=== PATIENT | female | born 1985 | race Caucasian/White ===

== ENCOUNTER 2016-06-02 09:39 | Emergency (ER) | payer OTHER ==
[~2016-06-02] VITALS: Ht 162.6 cm; Wt 136.6 kg
[~2016-06-02 09:39] MED LIST: ACET-1256 PO; CYM/30 PO; DULO60CA44 PO; LEVO150T PO; OXYC-609 PO; PROM25TA16 PO; SENN-61 PO
[2016-06-02 09:41] VITALS: TEMP 37; Ht 162.6 cm; Wt 136.6 kg
[2016-06-02] MEDS ORDERED: ALPRAZOLAM 0.5 MG TAB PO STA (09:56)
[2016-06-02] MEDS ORDERED: FLUO40CA8 PO (10:41)
[2016-06-02] MEDS ORDERED: ONDA4TAB46 PO (10:41)
[2016-06-02] MEDS ORDERED: LEVO112T4 PO (10:41)
[2016-06-02] MEDS ORDERED: MoRPHine SULFATE 10 MG/ML CARP/VIAL IV STA (11:39)
[2016-06-02 12:07] LABS: BASO % 0.1 %; BASO ABS # 0.01 K/uL (0-0.2); COMPLETE YES; EOS % 0.2 %; HEMATOCRIT 38.2 % (37-47); IG% 0.1 %; LYMPH % 13.8 %; LYMPH ABS # 1.11 K/uL (1.2-3.4); MEAN CELL VOLUME 82.5 fL (80-100); MEAN CORPUSCULAR HEMOGLOBIN 28.1 pg (25-34); MEAN PLATELET VOLUME 10.5 fL (7.4-10.4); MONO % 5.5 %; NEUT % 80.3 %; PLATELET COUNT 286 K/uL (130-400); RED BLOOD COUNT 4.63 M/uL (4.2-5.4); WHITE BLOOD COUNT 8.05 K/uL (4.8-10.8)
[2016-06-02 12:31] LABS: BUN/CREATININE RATIO 9.5 (10-20); CALCIUM 9.5 mg/dl (8.5-10.1); CREATININE 0.83 mg/dl (0.60-1.20); POTASSIUM 3.7 mmol/L (3.5-5.1)
[2016-06-02 12:34] LABS: ALB/GLOB RATIO 0.9 (0.9-2)
[2016-06-02 13:10] VITALS: BP 133/98; PULSE 94; O2SAT 97
--- NOTE | 2016-06-02 13:17 | EMERGENCY ROOM VISIT NOTE ---
History First contact with patient: 09:49 Chief Complaint: ANXIETY Stated Complaint: TOOK WRONG MEDICATION, ANXIETY ATTACK History of Present Illness The patient is a 30 year old female who presents to the Emergency Room with complaints of an anxiety attack. The patient reports that she has chronic pancreatitis and takes oxycodone for this at home. She had taken one oxycodone as well as Zofran early this morning but still had pain. She states that she was trying to take her 's Tylenol, but accidentally took a tramadol. She states that she did research on the Internet and believes that Zofran and tramadol interacted. She reports that she is having an anxiety attack due to this. She has having palpitations and feels anxious. She does still have some chronic right upper quadrant abdominal pain. She states this is not out of the usual for her. She denies any chest pain, shortness of breath, headache, neck pain, vomiting, numbness or weakness. Review of Systems A complete 10-point Review of Systems was discussed with the patient, with pertinent positives and negatives listed in the History of Present Illness. All remaining Review of Systems questions can be considered negative unless otherwise specified. Past Medical/Surgical History Medical Problems: (1) Acute pancreatitis (2) Cholecystectomy (3) Chronic pancreatitis (4) Depressive disorder (5) Encounter for pancreatic duct stent exchange (6) Epigastric pain (7) Hx of pancreatitis (8) Intrauterine (9) Normal labor (10) Obesity, Nos (11) Pancreatic stent migration (12) Pancreatitis, chronic (13) Sterilization Surgical Problems: (1) H/O esophagogastroduodenoscopy (2) History of cholecystectomy (3) Tubal Ligation Status Family History Diabetes mellitus FH: [place] (myocardial infarction) FHx: cancer FHx: coronary artery disease FHx: gallbladder disease Hypertension Social History Smoking Status: Never Smoker Alcohol Use: none Drug Use: none Marital Status: Housing Status: lives with family Occupation Status: unemployed Current/Historical Medications Scheduled Fluoxetine (Prozac), 40 MG PO DAILY Levothyroxine Sodium (Levothyroxine Sodium), 1 TAB PO DAILY Scheduled PRN Acetaminophen (Tylenol), 1,500 MG PO UD PRN for Pain Ondansetron Hcl (Zofran), 4 MG PO for Nausea Oxycodone HCl (Oxycodone HCl), 5 MG PO Q4 PRN for Pain Promethazine HCl (Promethazine HCl), 1 TAB PO Q6 PRN for Nausea or Vomiting Senna (Senokot), 1 TAB PO DAILY PRN for Constipation Allergies Coded Allergies: Adhesives (Verified Allergy, Intermediate, REDDENED RASH, 06/02/16) Physical Exam Vital Signs Date Time Temp Pulse Resp B/P Pulse Ox O2 Delivery O2 Flow Rate FiO2 06/02/16 13:10 94 20 133/98 97 Room Air 06/02/16 11:58 110 16 154/91 98 Room Air 06/02/16 09:41 37.0 79 16 100 Room Air Physical Exam VITALS: Vitals are noted on the nurse's note and reviewed by myself. Vital signs stable. GENERAL: This is a 30-year-old female, anxious appearing, nondiaphoretic, well- developed well-nourished. SKIN: Capillary reflex less than 2 seconds. HEENT: Normocephalic. PERRLA. EOMI. Nares patent. Mucous membranes moist. Neck is supple without nuchal rigidity. HEART: Regular rate and rhythm without murmurs gallops or rubs. LUNGS: Clear to auscultation bilaterally without wheezes, rales or rhonchi. No retractions or accessory muscle use. ABDOMEN: Positive bowel sounds x 4. Mild right upper quadrant tenderness. No guarding or rebound tenderness. NEURO: Patient was alert and oriented to person place and time. Medical Decision & Procedures Laboratory Results 06/02/16 11:55 Red Blood Count 4.63, Mean Corpuscular Volume 82.5, Mean Corpuscular Hemoglobin 28.1, Mean Corpuscular Hemoglobin Concent 34.0, Mean Platelet Volume 10.5, Neutrophils (%) (Auto) 80.3, Lymphocytes (%) (Auto) 13.8, Monocytes (%) (Auto) 5.5, Eosinophils (%) (Auto) 0.2, Basophils (%) (Auto) 0.1, Neutrophils # (Auto) 6.46, Lymphocytes # (Auto) 1.11, Monocytes # (Auto) 0.44, Eosinophils # (Auto) 0.02, Basophils # (Auto) 0.01 06/02/16 11:55 Test 06/02/16 11:55 White Blood Count 8.05 K/uL (4.8-10.8) Red Blood Count 4.63 M/uL (4.2-5.4) Hemoglobin 13.0 g/dL (12.0-16.0) Hematocrit 38.2 % (37-47) Mean Corpuscular Volume 82.5 fL (80-100) Mean Corpuscular Hemoglobin 28.1 pg (25-34) Mean Corpuscular Hemoglobin Concent 34.0 g/dl (32-36) Platelet Count 286 K/uL (130-400) Mean Platelet Volume 10.5 fL (7.4-10.4) Neutrophils (%) (Auto) 80.3 % Lymphocytes (%) (Auto) 13.8 % Monocytes (%) (Auto) 5.5 % Eosinophils (%) (Auto) 0.2 % Basophils (%) (Auto) 0.1 % Neutrophils # (Auto) 6.46 K/uL (1.4-6.5) Lymphocytes # (Auto) 1.11 K/uL (1.2-3.4) Monocytes # (Auto) 0.44 K/uL (0.11-0.59) Eosinophils # (Auto) 0.02 K/uL (0-0.5) Basophils # (Auto) 0.01 K/uL (0-0.2) RDW Standard Deviation 41.3 fL (36.4-46.3) RDW Coefficient of Variation 13.6 % (11.5-14.5) Immature Granulocyte % (Auto) 0.1 % Immature Granulocyte # (Auto) 0.01 K/uL (0.00-0.02) Anion Gap 9.0 mmol/L (3-11) Est Creatinine Clear Calc Drug Dose 138.1 ml/min Estimated GFR () 110.4 Estimated GFR (Non- 95.3 BUN/Creatinine Ratio 9.5 (10-20) Calcium Level 9.5 mg/dl (8.5-10.1) Total Bilirubin 0.4 mg/dl (0.2-1) Aspartate Amino Transf (AST/SGOT) 18 U/L (15-37) Alanine Aminotransferase (ALT/SGPT) 28 U/L (12-78) Alkaline Phosphatase 60 U/L (45-117) Total Protein 8.0 gm/dl (6.4-8.2) Albumin 3.8 gm/dl (3.4-5.0) Globulin 4.2 gm/dl (2.5-4.0) Albumin/Globulin Ratio 0.9 (0.9-2) Lipase 213 U/L (73-393) Medications Administered Medications (Trade) Dose Ordered Sig/René Route Start Time Stop Time Status Last Admin Dose Admin Alprazolam (Xanax Tab) 0.5 mg NOW STAT PO 06/02/16 09:56 06/02/16 10:00 DC 06/02/16 10:05 0.5 MG Morphine Sulfate (MoRPHine SULFATE INJ) 6 mg NOW STAT IV 06/02/16 11:39 06/02/16 11:42 DC 06/02/16 11:57 6 MG Medical Decision Differential diagnosis includes anxiety attack, medication reaction, acute pancreatitis, infection, among others. The patient was evaluated as above. EKG was performed and was unremarkable except for artifact. The patient was given 0.5 mg Xanax. However, on reassessment the patient was then complaining of significant right upper quadrant pain which she states is consistent with her pancreatitis. She states that at times, when she becomes stressed her pancreatitis flares up. She states that she believes this is what is happening now. She did have moderate tenderness on palpation of the right upper quadrant. She was then given 6 mg morphine. Labs were drawn and revealed no leukocytosis, anemia or concerning electrolyte abnormalities. LFTs were normal. Lipase was not elevated. The patient was reassessed and felt much better. She will be discharged home to follow-up with her primary care provider. Impression Primary Impression: Anxiety Additional Impression: Right upper quadrant abdominal pain Departure Information Dispostion Home / Self-Care Condition GOOD Referrals Xander Wyatt M.D. (PCP) Patient Instructions My [facility] Additional Instructions You have been treated in the Emergency Department for your Abdominal Pain. Laboratory results and imaging studies have ruled out any emergent causes for your abdominal pain which would warrant admission or surgery. Continue pain medication at home as prescribed. Follow-up with your primary care provider in any specialists as needed. Return to the emergency department if your symptoms persist despite treatment plan outlined above or if the following symptoms occur: increased fevers, chills , worsening nausea/vomiting, blood in your stool or urine. Problem Qualifiers
== END 2016-06-02 13:40 | disposition home or self-care (01) ==
LOC: C.EDB 09:42 → C.EDA 13:40
DX: F41.9 Anxiety disorder, unspecified (principal); R10.11 Right upper quadrant pain; F32.9 Major depressive disorder, single episode, unspecified; K86.1 Other chronic pancreatitis; Z98.51 Tubal ligation status; Z90.49 Acquired absence of other specified parts of digestive tract; Z79.899 Other long term (current) drug therapy; Z91.09 Other allergy status, other than to drugs and biological substances; Z83.3 Family history of diabetes mellitus; Z80.9 Family history of malignant neoplasm, unspecified; Z82.49 Family history of ischemic heart disease and other diseases of the circulatory system; Z83.79 Family history of other diseases of the digestive system

== ENCOUNTER 2016-08-31 09:32 | Emergency (ER) | payer OTHER ==
[~2016-08-31] VITALS: Ht 162.6 cm; Wt 137.0 kg
[~2016-08-31 09:32] MED LIST changes: -ACET-1256 PO; -CYM/30 PO; -DULO60CA44 PO; +FLUO40CA8 PO; +LEVO112T4 PO; -LEVO150T PO; +ONDA4TAB46 PO; -OXYC-609 PO; -PROM25TA16 PO
[2016-08-31 09:35] VITALS: TEMP 36.9; Ht 162.6 cm; Wt 137.0 kg
[2016-08-31] MEDS ORDERED: HYDROmorphone INJ 1 MG/ML SYR IV STA (10:05)
[2016-08-31] MEDS ORDERED: SODIUM CHLORIDE 0.9% 1000ML 1,000 ML IV STA (10:05)
[2016-08-31] MEDS ORDERED: ONDANSETRON INJ 2 MG/ML 2 ML VIAL IV STA (10:05)
--- NOTE | 2016-08-31 10:22 | DIAGNOSTIC IMAGING REPORT ---
CHEST ONE VIEW PORTABLE CLINICAL HISTORY: Abdominal pain. COMPARISON STUDY: Chest radiograph March 07, 2016. FINDINGS: There is no lucency under the hemidiaphragms to indicate pneumoperitoneum on this exam. Lung volumes are normal. Lungs are clear. There is no evidence of pulmonary edema. Cardiomediastinal silhouette is normal. IMPRESSION: No acute cardiopulmonary findings. Electronically signed by: Francis Aguirre M.D. 08/31/2016 10:21 AM Dictated Date/Time: 08/31/2016 10:20 AM
[2016-08-31 10:24] LABS: BASO % 0.2 %; BASO ABS # 0.01 K/uL (0-0.2); COMPLETE YES; EOS % 1.2 %; HEMATOCRIT 40.4 % (37-47); LYMPH % 20.9 %; LYMPH ABS # 1.37 K/uL (1.2-3.4); MEAN CELL VOLUME 84.5 fL (80-100); MEAN CORPUSCULAR HEMOGLOBIN 27.8 pg (25-34); MEAN CORPUSCULAR HGB CONC 32.9 g/dl (32-36); MEAN PLATELET VOLUME 10.2 fL (7.4-10.4); MONO % 6.3 %; NEUT % 71.4 %; PLATELET COUNT 315 K/uL (130-400); RED BLOOD COUNT 4.78 M/uL (4.2-5.4); WHITE BLOOD COUNT 6.56 K/uL (4.8-10.8)
[2016-08-31 10:44] LABS: ALT/SGPT 31 U/L (12-78); AST/SGOT 9 U/L (15-37); BLOOD UREA NITROGEN 10 mg/dl (7-18); BUN/CREATININE RATIO 11.9 (10-20); CALCIUM 8.7 mg/dl (8.5-10.1); CARBON DIOXIDE 23 mmol/L (21-32); CHLORIDE 109 mmol/L (98-107); CREATININE 0.81 mg/dl (0.60-1.20); GLUCOSE 104 mg/dl (70-99); POTASSIUM 3.9 mmol/L (3.5-5.1); SODIUM 141 mmol/L (136-145)
[2016-08-31 10:46] LABS: ALKALINE PHOSPHATASE 61 U/L (45-117); AMYLASE 61 U/L (25-115)
[2016-08-31] MEDS ORDERED: ALUMINUM/MAGNESIUM SUSP 30 ML UDC PO STA (11:18)
[2016-08-31] MEDS ORDERED: LIDOCAINE HCL 2% VISC SOLN 20 ML UDC PO STA (11:18)
[2016-08-31] MEDS ORDERED: PANTOprazole INJ 80 MG in DEXTROSE 5% 100ML 100 ML IV SCH (11:30)
[2016-08-31 11:52] LABS: URINE APPEARANCE TURBID (CLEAR); URINE BILIRUBIN NEG (NEG); URINE COLOR DK YELLOW; URINE EPITHELIAL CELL AUTO >30 /lpf (0-5); URINE NITRITE NEG (NEG); URINE SPECIFIC GRAVITY 1.026 (1.000-1.030); UROBILINOGEN NEG (NEG)
[2016-08-31 11:56] LABS: MANUAL MICROSCOPIC REQUIRED? NO; REVIEW REQ? NO
[2016-08-31 12:27] VITALS: BP 119/71; PULSE 93; O2SAT 98
--- NOTE | 2016-09-01 06:07 | EMERGENCY ROOM VISIT NOTE ---
ED Visit Note First contact with patient: 09:40 Chief Complaint: Abdominal pain History of Present Illness: Ms. Ba is a 30 year-old white female who ambulates into the ED complaining of epigastric abdominal pain. Historically patient reports chronic pancreatitis of unknown etiology, GERD, hiatal hernia and is status post cholecystectomy and tubal ligation. Patient reports a acute onset of epigastric abdominal pain that started approximately 2 days ago. Since that time the pain has been intermittent and comes in waves. She describes her discomfort as a burning sensation. The pain is radiating into the midsternal area. The pain worsens with eating, lying down. She has not identified any alleviating factors related to her discomfort. She has tried her prescribed oxycodone without relief of her discomfort. Associated with her pain she reports she's been having chills but no ayush fever, nauseated but has not vomited and this morning she had 4 episodes of light brown watery stools. And is improved by . has been taken for pain and relief has been achieved. Patient denies sweats, skin eruptions, skin color changes, upper respiratory tract symptoms, shortness of breath, constipation, rectal bleeding, black/tarry stools, urinary symptoms, hematuria, vaginal bleeding, vaginal discharge, back/ flank pain. Review of Systems: As noted above in history of present illness. All body systems were reviewed and found to be negative as noted above. Past Medical History: As noted above. Current Medications: Tylenol, oxycodone, promethazine, Senokot, levothyroxine, Zofran, Prozac Allergies to Medications: Patient denies. Social History: Patient is not currently employed; she feels safe in her home environment; she denies tobacco and alcohol use. Physical Examination: Vital Signs: Date Time Temp Pulse Resp B/P Pulse Ox O2 Delivery O2 Flow Rate FiO2 08/31/16 12:27 93 16 119/71 98 08/31/16 11:07 97 16 123/68 98 Room Air 08/31/16 09:35 36.9 117 22 139/81 99 GENERAL: 30-year-old female in moderate distress due to pain, nontoxic-appearing , afebrile and hemodynamically stable. NEUROLOGICAL: Awake, alert and oriented to person, place and time. Answering questions appropriately and following commands. Normal gait. Good hand eye coordination. SKIN: Warm, dry and pink. No soft tissue eruptions or trauma noted. HEENT: Atraumatic and normocephalic. PERRLA. Sclera white and conjunctiva pink. Oral cavity moist and pink. Pharynx is nonerythematous or edematous. Speech normal. No lymphadenopathy. Trachea midline. No jugular venous distention. BACK: No tenderness over the bony spine. No CVA tenderness. THORAX: Lungs sounds are clear to auscultation and equal bilaterally with symmetrical chest wall. No wheezing, rales or rhonchi. No crepitus, tenderness , subcutaneous air or deformities noted. HEART: Regular rate and rhythm. No gallops, rubs or murmurs are appreciated. ABDOMEN: Obese and soft with moderate epigastric tenderness. Decreased bowel sounds in all quadrants. No guarding, rigidity or organomegaly. EXTREMITIES: Moves all extremities well on command and with purpose. All distal neurovascular statuses are intact and equal bilaterally. ED Course: Patient is assessed as noted above. Laboratory Testing: Test 08/31/16 09:55 08/31/16 10:21 08/31/16 11:11 Range/Units White Blood Count 6.56 4.8-10.8 K/uL Red Blood Count 4.78 4.2-5.4 M/uL Hemoglobin 13.3 12.0-16.0 g/dL Hematocrit 40.4 37-47 % Mean Corpuscular Volume 84.5 80-100 fL Mean Corpuscular Hemoglobin 27.8 25-34 pg Mean Corpuscular Hemoglobin Concent 32.9 32-36 g/dl Platelet Count 315 130-400 K/uL Mean Platelet Volume 10.2 7.4-10.4 fL Neutrophils (%) (Auto) 71.4 % Lymphocytes (%) (Auto) 20.9 % Monocytes (%) (Auto) 6.3 % Eosinophils (%) (Auto) 1.2 % Basophils (%) (Auto) 0.2 % Neutrophils # (Auto) 4.69 1.4-6.5 K/uL Lymphocytes # (Auto) 1.37 1.2-3.4 K/uL Monocytes # (Auto) 0.41 0.11-0.59 K/uL Eosinophils # (Auto) 0.08 0-0.5 K/uL Basophils # (Auto) 0.01 0-0.2 K/uL RDW Standard Deviation 44.1 36.4-46.3 fL RDW Coefficient of Variation 14.2 11.5-14.5 % Immature Granulocyte % (Auto) 0.0 % Immature Granulocyte # (Auto) 0.00 0.00-0.02 K/uL Sodium Level 141 136-145 mmol/L Potassium Level 3.9 3.5-5.1 mmol/L Chloride Level 109 98-107 mmol/L Carbon Dioxide Level 23 21-32 mmol/L Anion Gap 9.0 3-11 mmol/L Blood Urea Nitrogen 10 7-18 mg/dl Creatinine 0.81 0.60-1.20 mg/dl Est Creatinine Clear Calc Drug Dose 141.8 ml/min Estimated GFR () 113.8 Estimated GFR (Non- 98.1 BUN/Creatinine Ratio 11.9 10-20 Random Glucose 104 70-99 mg/dl Calcium Level 8.7 8.5-10.1 mg/dl Total Bilirubin 0.4 0.2-1 mg/dl Direct Bilirubin < 0.1 0-0.2 mg/dl Aspartate Amino Transf (AST/SGOT) 9 15-37 U/L Alanine Aminotransferase (ALT/SGPT) 31 12-78 U/L Alkaline Phosphatase 61 45-117 U/L Total Protein 7.8 6.4-8.2 gm/dl Albumin 3.5 3.4-5.0 gm/dl Amylase Level 61 25-115 U/L Lipase 190 73-393 U/L Bedside Troponin I 0.000 0-0.045 ng/ml Urine Color DK YELLOW Urine Appearance TURBID CLEAR Urine pH 5.0 4.5-7.5 Urine Specific Bradley 1.026 1.000-1.030 Urine Protein NEG NEG Urine Glucose (UA) NEG NEG Urine Ketones TRACE NEG Urine Occult Blood NEG NEG Urine Nitrite NEG NEG Urine Bilirubin NEG NEG Urine Urobilinogen NEG NEG Urine Leukocyte Esterase TRACE NEG Urine WBC (Auto) 1-5 0-5 /hpf Urine RBC (Auto) 0-4 0-4 /hpf Urine Hyaline Casts (Auto) 1-5 0-5 /lpf Urine Epithelial Cells (Auto) >30 0-5 /lpf Urine Bacteria (Auto) NEG NEG Chest X-Rays: Were read by myself and the radiologist showing no acute infiltrates, effusions or pneumothorax. Normal heart silhouette and bony anatomy. No free air under the diaphragm. EKG: Was read by myself and reviewed with Dr. Alonso and shows normal sinus rhythm with sinus arrhythmia. Ventricular rate 99 bpm. Normal axis, intervals and complexes. No acute ST changes indicating ischemia, injury or infarction. This was compared to a previous from May 2016 and no acute changes were noted. Patient was hydrated with normal saline and she initially received 1 mg of the Dilaudid IV and 4 mg of Zofran IV for her symptoms. Patient was reassessed multiple times during her stay in the emergency department. She did review that her pain was getting much better but continued to have waves of burning discomfort. She was given a GI cocktail and 80 mg of Protonix IV push. Patient's case was reviewed with Dr. Alonso we agreed on diagnostic approach , treatment, disposition and plan. Patient was educated about tonight's findings and instructed on her treatment plan; she verbalizes understanding and agreement with this plan. Clinical Impression: Epigastric abdominal pain. Probable GERD exacerbation. Decision-Making: Initially my differential diagnosis I considered pancreatitis, hepatitis, esophagitis, GERD, acute coronary syndrome, gastritis and other causes. Disposition: Patient discharged home in stable condition; prior to departure he was reassessed and subjectively reported she was feeling better and rated her discomfort 6/10. Plan: Patient was encouraged to use [id number] Zantac 2 times a day. Patient was encouraged to bland diet for the next 48 hours and then avoid stomach irritants. Patient was encouraged to follow-up with her hospital nurse for recheck and possible EGD. Patient was encouraged return ED for worsening/uncontrolled pain, uncontrolled nausea with vomiting, bloody vomitus, bloody stools, fevers or any new/ concerning symptoms.
== END 2016-08-31 12:27 | disposition home or self-care (01) ==
LOC: C.EDB 09:34 → C.EDA 12:27
DX: R10.13 Epigastric pain (principal); K21.9 Gastro-esophageal reflux disease without esophagitis; E66.9 Obesity, unspecified; Z79.899 Other long term (current) drug therapy; Z87.19 Personal history of other diseases of the digestive system

== ENCOUNTER 2017-03-19 18:16 | Inpatient (IN) | payer OTHER ==
[~2017-03-19] VITALS: Ht 162.6 cm; Wt 132.8 kg
[2017-03-19] MEDS ORDERED: OXYC-609 PO (18:17)
[2017-03-19] MEDS ORDERED: PROM25TA16 PO (18:17)
[2017-03-19] MEDS ORDERED: ONDANSETRON INJ 2 MG/ML 2 ML VIAL IV STA (18:35)
[2017-03-19] MEDS ORDERED: MoRPHine SULFATE 10 MG/ML CARP/VIAL IV STA (18:35)
[2017-03-19] MEDS ORDERED: SODIUM CHLORIDE 0.9% 1000ML 1,000 ML IV STA (18:51)
[2017-03-19 19:00] LABS: URINE APPEARANCE CLEAR (CLEAR); URINE BILIRUBIN NEG (NEG); URINE COLOR YELLOW; URINE EPITHELIAL CELL AUTO >30 /lpf (0-5); URINE NITRITE NEG (NEG); URINE PH 5.5 (4.5-7.5); URINE SPECIFIC GRAVITY 1.019 (1.000-1.030); UROBILINOGEN NEG (NEG); ZZUR CULT IF INDIC CLEAN CATCH NO
[2017-03-19 19:02] LABS: MANUAL MICROSCOPIC REQUIRED? NO; REVIEW REQ? NO
[2017-03-19 19:06] LABS: BASO % 0.2 %; BASO ABS # 0.02 K/uL (0-0.2); COMPLETE YES; EOS % 0.3 %; IG% 0.2 %; LYMPH % 18.2 %; LYMPH ABS # 1.82 K/uL (1.2-3.4); MEAN CELL VOLUME 83.3 fL (80-100); MEAN CORPUSCULAR HEMOGLOBIN 28.1 pg (25-34); MEAN CORPUSCULAR HGB CONC 33.8 g/dl (32-36); MEAN PLATELET VOLUME 10.5 fL (7.4-10.4); MONO % 5.6 %; NEUT % 75.5 %; PLATELET COUNT 376 K/uL (130-400); WHITE BLOOD COUNT 10.01 K/uL (4.8-10.8)
[2017-03-19 19:25] LABS: ALT/SGPT 22 U/L (12-78); BLOOD UREA NITROGEN 11 mg/dl (7-18); BUN/CREATININE RATIO 12.7 (10-20); CALCIUM 9.5 mg/dl (8.5-10.1); CARBON DIOXIDE 22 mmol/L (21-32); CHLORIDE 107 mmol/L (98-107); CREATININE 0.86 mg/dl (0.60-1.20); GLUCOSE 99 mg/dl (70-99); POTASSIUM 4.2 mmol/L (3.5-5.1); SODIUM 141 mmol/L (136-145)
[2017-03-19 19:28] LABS: ALKALINE PHOSPHATASE 65 U/L (45-117); AST/SGOT 13 U/L (15-37)
--- NOTE | 2017-03-19 19:35 | DIAGNOSTIC IMAGING REPORT ---
(PANCREAS) ABDOMEN LTD HISTORY: 31 years-old Female abd pain epigastric acute epigastric abdominal pain COMPARISON: CT 08/14/2015 TECHNIQUE: Multiple real-time sonographic images of the abdominal right upper quadrant were obtained assessing grayscale appearance and color flow FINDINGS: Pancreas is predominantly obscured by bowel gas with imaged pancreatic head and neck appearing unremarkable. Mild pancreatic ductal dilation is again seen, 6 mm which is a stable finding. No obstructing stone or lesion identified. There is increased echogenicity of the hepatic parenchyma suggesting fatty infiltration. No intrahepatic biliary ductal dilation or focal mass identified. Mild dilation of the common bile duct, 0.8 cm also appears unchanged. Prior cholecystectomy. Imaged right kidney is unremarkable without hydronephrosis. IMPRESSION: 1. Prior cholecystectomy. Mild dilation of the common bile duct is likely secondary to postcholecystectomy state. 2. Unchanged mild pancreatic ductal dilation of unknown etiology without obstructing stone or lesion identified. 3. Probable fatty infiltration of the liver. The above report was generated using voice recognition software. It may contain grammatical, syntax or spelling errors. Electronically signed by: Yanick Brock M.D. 03/19/2017 7:34 PM Dictated Date/Time: 03/19/2017 7:30 PM
[2017-03-19] MEDS ORDERED: LEVO150T9 PO (20:04)
[2017-03-19] MEDS ORDERED: ONDA4TAB10 SL (20:04)
[2017-03-19] MEDS ORDERED: HYDR200T5 PO (20:04)
[2017-03-19] MEDS ORDERED: ACET-1256 PO (20:53)
[2017-03-19] MEDS ORDERED: ONDANSETRON INJ 2 MG/ML 2 ML VIAL IV PRN (21:00)
--- NOTE | 2017-03-19 21:23 | History and Physical ---
History & Physical Date & Time of Service: Mar 19, 2017 at 20:59 Chief Complaint: Abd Pain,Nausea Primary Care Physician: Xander Wyatt M.D. History of Present Illness Source: patient, clinic records, hospital records 31 year old female with PMH of obesity, chronic pancreatitis, diaphragmatic hernia, hypothyroidism, cholecystectomy, recently dx with undifferentiated connective tissue disease presents to the Emergency Room with complaints of constant abdominal pain. Pt said that she has been having abdominal pain located in the epigastric area that began on Sunday. Describes pain as sharp, grade 10/10, radiating to the LUQ and goes to her back. Pt said that she has been taking her oxycodone with no relief. She said that today she develops multiples episodes vomiting and watery diarrhea. She said that her symptoms are similar to her previous episodes of pancreatitis. She said that she has not been having any pancreatitis in the past year. She said that she recalled that she ate a sandwich on Sunday before starting to have the pain. She said that she felt warm on Sunday and took a Tylenol. Denies any recent abx used, traveling or sick contact. Denies any chest pain, palpitation, dizziness, SOB, dysuria and no alcohol intake. Past Medical/Surgical History Medical Problems: (1) Acute pancreatitis Status: Chronic (2) Cholecystectomy Status: Resolved (3) Chronic pancreatitis Status: Chronic (4) Depressive disorder Status: Chronic (5) Encounter for pancreatic duct stent exchange Status: Resolved (6) Epigastric pain Status: Chronic (7) Hx of pancreatitis Status: Chronic (8) Intrauterine Status: Resolved (9) Normal labor Status: Resolved (10) Pancreatic stent migration Status: Resolved (11) Pancreatitis, chronic Status: Chronic Surgical Problems: (1) H/O esophagogastroduodenoscopy Status: Resolved (2) History of cholecystectomy Status: Resolved (3) Tubal Ligation Status Status: Resolved Family History Diabetes mellitus FH: [facility] (myocardial infarction) FHx: cancer FHx: coronary artery disease FHx: gallbladder disease Hypertension Social History Smoking Status: Never Smoker Drug Use: none Marital Status: Housing status: lives with family Occupational Status: unemployed Immunizations History of Influenza Vaccine: Yes Influenza Vaccine Date: Mar 12, 2013 History of Tetanus Vaccine?: utd Tetanus Immunization Date: September 16, 2012 History of Pneumococcal: Unknown History of Hepatitis B Vaccine: Unknown Allergies Coded Allergies: Adhesives (Verified Allergy, Intermediate, REDDENED RASH, 08/31/16) Home Medications Scheduled Hydroxychloroquine Sulfate (Plaquenil), 200 MG PO DAILY Levothyroxine Sodium (Levothyroxine Sodium), 150 MCG PO QAM Scheduled PRN Ondasetron Odt (Zofran Odt), 4 MG SL Q4H PRN for Nausea Oxycodone HCl (Oxycodone HCl), 5 MG PO Q8 PRN for Pain Promethazine HCl (Promethazine HCl), 25 MG PO Q6H PRN for Nausea or Vomiting Review of Systems Constitutional: No chills, No sweats, No weight loss Eyes: No worsening of vision, No discharge ENT: No nasal symptoms, No sore throat Respiratory: No cough, No sputum, No wheezing, No shortness of breath Cardiovascular: No chest pain, No claudication, No palpitations Abdomen: + pain, + nausea, + vomiting, + diarrhea Musculoskeletal: No calf pain Genitourinary - Female: No dysuria, No urinary frequency Neurologic: No memory loss, No weakness Psychiatric: No substance abuse Endocrine: No fatigue, No excessive thirst Hematologic / Lymphatic: No abnormal bleeding/bruising Integumentary: No itch Physical Exam Vital Signs Date Time Temp Pulse Resp B/P (MAP) Pulse Ox O2 Delivery O2 Flow Rate FiO2 03/19/17 20:35 110/75 03/19/17 19:34 84 16 137/77 96 Room Air 03/19/17 18:26 37.0 109 18 138/92 96 Room Air General Appearance: WD/WN, + mild distress Head: normocephalic, atraumatic Eyes: PERRL, EOMI ENT: hearing grossly normal Neck: no JVD, trachea midline Respiratory/Chest: normal breath sounds, no respiratory distress, no accessory muscle use Cardiovascular: no edema, no JVD, + tachycardia Abdomen/GI: soft, + tenderness Back: no CVA tenderness Extremities/Musculoskelatal: no calf tenderness Neurologic/Psych: no motor/sensory deficits, alert, oriented x 3 Skin: warm/dry Diagnostics Laboratory Results Results Past 24 Hours Test 03/19/17 18:37 03/19/17 18:55 Range/Units Urine Color YELLOW Urine Appearance CLEAR CLEAR Urine pH 5.5 4.5-7.5 Urine Specific [place] 1.019 1.000-1.030 Urine Protein NEG NEG Urine Glucose (UA) NEG NEG Urine Ketones NEG NEG Urine Occult Blood NEG NEG Urine Nitrite NEG NEG Urine Bilirubin NEG NEG Urine Urobilinogen NEG NEG Urine Leukocyte Esterase NEG NEG Urine WBC (Auto) 1-5 0-5 /hpf Urine RBC (Auto) 0-4 0-4 /hpf Urine Hyaline Casts (Auto) 0 0-5 /lpf Urine Epithelial Cells (Auto) >30 0-5 /lpf Urine Bacteria (Auto) NEG NEG Urine Test NEG NEG White Blood Count 10.01 4.8-10.8 K/uL Red Blood Count 4.80 4.2-5.4 M/uL Hemoglobin 13.5 12.0-16.0 g/dL Hematocrit 40.0 37-47 % Mean Corpuscular Volume 83.3 80-100 fL Mean Corpuscular Hemoglobin 28.1 25-34 pg Mean Corpuscular Hemoglobin Concent 33.8 32-36 g/dl Platelet Count 376 130-400 K/uL Mean Platelet Volume 10.5 7.4-10.4 fL Neutrophils (%) (Auto) 75.5 % Lymphocytes (%) (Auto) 18.2 % Monocytes (%) (Auto) 5.6 % Eosinophils (%) (Auto) 0.3 % Basophils (%) (Auto) 0.2 % Neutrophils # (Auto) 7.56 1.4-6.5 K/uL Lymphocytes # (Auto) 1.82 1.2-3.4 K/uL Monocytes # (Auto) 0.56 0.11-0.59 K/uL Eosinophils # (Auto) 0.03 0-0.5 K/uL Basophils # (Auto) 0.02 0-0.2 K/uL RDW Standard Deviation 42.0 36.4-46.3 fL RDW Coefficient of Variation 13.8 11.5-14.5 % Immature Granulocyte % (Auto) 0.2 % Immature Granulocyte # (Auto) 0.02 0.00-0.02 K/uL Sodium Level 141 136-145 mmol/L Potassium Level 4.2 3.5-5.1 mmol/L Chloride Level 107 98-107 mmol/L Carbon Dioxide Level 22 21-32 mmol/L Anion Gap 12.0 3-11 mmol/L Blood Urea Nitrogen 11 7-18 mg/dl Creatinine 0.86 0.60-1.20 mg/dl Est Creatinine Clear Calc Drug Dose 129.6 ml/min Estimated GFR () 105.1 Estimated GFR (Non- 90.7 BUN/Creatinine Ratio 12.7 10-20 Random Glucose 99 70-99 mg/dl Calcium Level 9.5 8.5-10.1 mg/dl Total Bilirubin 0.3 0.2-1 mg/dl Direct Bilirubin < 0.1 0-0.2 mg/dl Aspartate Amino Transf (AST/SGOT) 13 15-37 U/L Alanine Aminotransferase (ALT/SGPT) 22 12-78 U/L Alkaline Phosphatase 65 45-117 U/L Total Protein 8.3 6.4-8.2 gm/dl Albumin 3.6 3.4-5.0 gm/dl Lipase 373 73-393 U/L Diagnostic Radiology [~ rep ct add3]] (PANCREAS) ABDOMEN LTD HISTORY: 31 years-old Female abd pain epigastric acute epigastric abdominal pain COMPARISON: CT 08/14/2015 TECHNIQUE: Multiple real-time sonographic images of the abdominal right upper quadrant were obtained assessing grayscale appearance and color flow FINDINGS: Pancreas is predominantly obscured by bowel gas with imaged pancreatic head and neck appearing unremarkable. Mild pancreatic ductal dilation is again seen, 6 mm which is a stable finding. No obstructing stone or lesion identified. There is increased echogenicity of the hepatic parenchyma suggesting fatty infiltration. No intrahepatic biliary ductal dilation or focal mass identified. Mild dilation of the common bile duct, 0.8 cm also appears unchanged. Prior cholecystectomy. Imaged right kidney is unremarkable without hydronephrosis. IMPRESSION: 1. Prior cholecystectomy. Mild dilation of the common bile duct is likely secondary to postcholecystectomy state. 2. Unchanged mild pancreatic ductal dilation of unknown etiology without obstructing stone or lesion identified. 3. Probable fatty infiltration of the liver. The above report was generated using voice recognition software. It may contain grammatical, syntax or spelling errors. Electronically signed by: Yanick Brock M.D. 03/19/2017 7:34 PM Dictated Date/Time: 03/19/2017 7:30 PM Impression Assessment and Plan Epigastric Abdominal/Vomiting/Diarrhea Hx of chronic pancreatitis possible related to viral gastroenteritis vs pancreatitis Lipase normal U/S pancreas showed unchanged mild pancreatic ductal dilation of unknown etiology without obstructing stone or lesion identified. Starting on IVF, Morphine for pain and Zofran NPO for now Will start on clear liquid diet in am if improves Check stool for cdiff if diarrhea worsening Hypothyroidism Check TSH Continue levothyroxine Obesity Counseling on weight loss/diet and exercise Undifferentiated Connective Tissue Disease Continue Plaquenil DVT px on SCDs/ Ambulate CODE STATUS FULL CODE Level of Care Med/Surg Resuscitation Status FULL RESUSCITATION VTE Prophylaxis VTE Risk Assessment Done? Y/N: Yes Risk Level: Low Given or contraindicated: SCD's
[2017-03-19] MEDS: SODIUM CHLORIDE 0.9% 1000ML 1,000 ML IV SCH (21:51)
[2017-03-19 21:54] VITALS: BP 104/78; PULSE 87; TEMP 37.2; O2SAT 95; Ht 162.6 cm; Wt 132.8 kg
[2017-03-19] MEDS ORDERED: INFLUENZA VIRUS QUAD VACCINE 0.5 ML SYR IM. ONE (22:30)
[2017-03-19] MEDS ORDERED: INFLUENZA ADMINISTRATION CHARGE ONE (22:30)
[2017-03-19 23:23] VITALS: BP 102/68; PULSE 68; TEMP 36.8; O2SAT 97
--- NOTE | 2017-03-19 23:49 | EMERGENCY ROOM VISIT NOTE ---
History Report prepared by [place]tar: Karma Hodgson Under the Supervision of: Dr. Christiano Walker D.O. First contact with patient: 18:28 Chief Complaint: ABDOMINAL PAIN Stated Complaint: ABD PAIN,NAUSEA History of Present Illness The patient is a 31 year old female who presents to the Emergency Room with complaints of constant abdominal pain beginning 2 days ago. The patient states that she has a history of pancreatitis and today her symptoms feel similar to previous episodes. She reports that her pain is in the lower left side and today she has been not been able to eat due to nausea and diarrhea. The patient denies any vomiting, urinary symptoms, chest pain, shortness of breath. She notes a history of tubal ligation and cholecystectomy. She states that she does still have lipase elevation with pancreatitis. Source of History: patient Onset: 3 days ago Position: abdomen Timing: constant Associated Symptoms: + nausea, + diarrhea, No chest pain, No SOB, No vomiting, No urinary symptoms Review of Systems See HPI for pertinent positives & negatives. A total of 10 systems reviewed and were otherwise negative. Past Medical & Surgical Medical Problems: (1) Acute pancreatitis (2) Cholecystectomy (3) Chronic pancreatitis (4) Depressive disorder (5) Encounter for pancreatic duct stent exchange (6) Epigastric pain (7) Hx of pancreatitis (8) Intrauterine (9) Normal labor (10) Obesity, Nos (11) Pancreatic stent migration (12) Pancreatitis, chronic (13) Sterilization Surgical Problems: (1) H/O esophagogastroduodenoscopy (2) History of cholecystectomy (3) Tubal Ligation Status Family History Diabetes mellitus FH: [place] (myocardial infarction) FHx: cancer FHx: coronary artery disease FHx: gallbladder disease Hypertension Social History Smoking Status: Never Smoker Alcohol Use: none Drug Use: none Marital Status: Housing Status: lives with family Occupation Status: unemployed Current/Historical Medications Scheduled Hydroxychloroquine Sulfate (Plaquenil), 200 MG PO DAILY Levothyroxine Sodium (Levothyroxine Sodium), 150 MCG PO QAM Scheduled PRN Ondasetron Odt (Zofran Odt), 4 MG SL Q4H PRN for Nausea Oxycodone HCl (Oxycodone HCl), 5 MG PO Q8 PRN for Pain Promethazine HCl (Promethazine HCl), 25 MG PO Q6H PRN for Nausea or Vomiting Allergies Coded Allergies: Adhesives (Verified Allergy, Intermediate, REDDENED RASH, 08/31/16) Physical Exam Vital Signs Date Time Temp Pulse Resp B/P (MAP) Pulse Ox O2 Delivery O2 Flow Rate FiO2 03/19/17 20:35 110/75 03/19/17 19:34 84 16 137/77 96 Room Air 03/19/17 18:26 37.0 109 18 138/92 96 Room Air Physical Exam GENERAL: Sitting up in bed, alert, obese, moderate distress, holding periumbilical region EYE EXAM: normal conjunctiva. OROPHARYNX: no exudate, no erythema, lips, buccal mucosa, and tongue normal and mucous membranes are moist NECK: supple, no nuchal rigidity, no adenopathy, non-tender LUNGS: Clear to auscultation. Normal chest wall mechanics HEART: no murmurs, S1 normal and S2 normal ABDOMEN: abdomen soft, tender to palpation of periumbilical region, normo- active bowel sounds, no masses, no rebound or guarding. BACK: Back is symmetrical on inspection and there is no deformity, no midline tenderness, no CVA tenderness. SKIN: no rashes and no bruising UPPER EXTREMITIES: upper extremities are grossly normal. LOWER EXTREMITIES: No pitting edema. NEURO EXAM: Normal sensorium, cranial nerves II-XII grossly intact, normal speech, no gross weakness of arms, no gross weakness of legs. Medical Decision & Procedures ER Provider Diagnostic Interpretation: Radiology results as stated below per my review and the radiologist's interpretation: (PANCREAS) ABDOMEN LTD FINDINGS: Pancreas is predominantly obscured by bowel gas with imaged pancreatic head and neck appearing unremarkable. Mild pancreatic ductal dilation is again seen, 6 mm which is a stable finding. No obstructing stone or lesion identified. There is increased echogenicity of the hepatic parenchyma suggesting fatty infiltration. No intrahepatic biliary ductal dilation or focal mass identified. Mild dilation of the common bile duct, 0.8 cm also appears unchanged. Prior cholecystectomy. Imaged right kidney is unremarkable without hydronephrosis. IMPRESSION: 1. Prior cholecystectomy. Mild dilation of the common bile duct is likely secondary to postcholecystectomy state. 2. Unchanged mild pancreatic ductal dilation of unknown etiology without obstructing stone or lesion identified. 3. Probable fatty infiltration of the liver. The above report was generated using voice recognition software. It may contain grammatical, syntax or spelling errors. Electronically signed by: Yanick Brock M.D. 03/19/2017 7:34 PM Dictated Date/Time: 03/19/2017 7:30 PM Laboratory Results 03/19/17 18:55 Red Blood Count 4.80, Mean Corpuscular Volume 83.3, Mean Corpuscular Hemoglobin 28.1, Mean Corpuscular Hemoglobin Concent 33.8, Mean Platelet Volume 10.5, Neutrophils (%) (Auto) 75.5, Lymphocytes (%) (Auto) 18.2, Monocytes (%) (Auto) 5.6, Eosinophils (%) (Auto) 0.3, Basophils (%) (Auto) 0.2, Neutrophils # (Auto) 7.56, Lymphocytes # (Auto) 1.82, Monocytes # (Auto) 0.56, Eosinophils # (Auto) 0.03, Basophils # (Auto) 0.02 03/19/17 18:55 Test 03/19/17 18:37 03/19/17 18:55 Urine Color YELLOW Urine Appearance CLEAR (CLEAR) Urine pH 5.5 (4.5-7.5) Urine Specific [place] 1.019 (1.000-1.030) Urine Protein NEG (NEG) Urine Glucose (UA) NEG (NEG) Urine Ketones NEG (NEG) Urine Occult Blood NEG (NEG) Urine Nitrite NEG (NEG) Urine Bilirubin NEG (NEG) Urine Urobilinogen NEG (NEG) Urine Leukocyte Esterase NEG (NEG) Urine WBC (Auto) 1-5 /hpf (0-5) Urine RBC (Auto) 0-4 /hpf (0-4) Urine Hyaline Casts (Auto) 0 /lpf (0-5) Urine Epithelial Cells (Auto) >30 /lpf (0-5) Urine Bacteria (Auto) NEG (NEG) Urine Test NEG (NEG) White Blood Count 10.01 K/uL (4.8-10.8) Red Blood Count 4.80 M/uL (4.2-5.4) Hemoglobin 13.5 g/dL (12.0-16.0) Hematocrit 40.0 % (37-47) Mean Corpuscular Volume 83.3 fL (80-100) Mean Corpuscular Hemoglobin 28.1 pg (25-34) Mean Corpuscular Hemoglobin Concent 33.8 g/dl (32-36) Platelet Count 376 K/uL (130-400) Mean Platelet Volume 10.5 fL (7.4-10.4) Neutrophils (%) (Auto) 75.5 % Lymphocytes (%) (Auto) 18.2 % Monocytes (%) (Auto) 5.6 % Eosinophils (%) (Auto) 0.3 % Basophils (%) (Auto) 0.2 % Neutrophils # (Auto) 7.56 K/uL (1.4-6.5) Lymphocytes # (Auto) 1.82 K/uL (1.2-3.4) Monocytes # (Auto) 0.56 K/uL (0.11-0.59) Eosinophils # (Auto) 0.03 K/uL (0-0.5) Basophils # (Auto) 0.02 K/uL (0-0.2) RDW Standard Deviation 42.0 fL (36.4-46.3) RDW Coefficient of Variation 13.8 % (11.5-14.5) Immature Granulocyte % (Auto) 0.2 % Immature Granulocyte # (Auto) 0.02 K/uL (0.00-0.02) Anion Gap 12.0 mmol/L (3-11) Est Creatinine Clear Calc Drug Dose 129.6 ml/min Estimated GFR () 105.1 Estimated GFR (Non- 90.7 BUN/Creatinine Ratio 12.7 (10-20) Calcium Level 9.5 mg/dl (8.5-10.1) Total Bilirubin 0.3 mg/dl (0.2-1) Direct Bilirubin < 0.1 mg/dl (0-0.2) Aspartate Amino Transf (AST/SGOT) 13 U/L (15-37) Alanine Aminotransferase (ALT/SGPT) 22 U/L (12-78) Alkaline Phosphatase 65 U/L (45-117) Total Protein 8.3 gm/dl (6.4-8.2) Albumin 3.6 gm/dl (3.4-5.0) Lipase 373 U/L (73-393) Laboratory results per my review. Medications Administered Medications (Trade) Dose Ordered Sig/René Route Start Time Stop Time Status Last Admin Dose Admin Morphine Sulfate (MoRPHine SULFATE INJ) 6 mg NOW STAT IV 03/19/17 18:35 03/19/17 18:37 DC 03/19/17 18:57 6 MG Ondansetron HCl (Zofran Inj) 4 mg NOW STAT IV 03/19/17 18:35 03/19/17 18:37 DC 03/19/17 18:57 4 MG Sodium Chloride 1,000 ml @ 999 mls/hr Q1H1M STAT IV 03/19/17 18:51 03/19/17 19:51 DC 03/19/17 19:34 999 MLS/HR ED Course ED COURSE: Vital signs were reviewed and normal The patients medical record was reviewed The above diagnostic studies were performed and reviewed. ED treatments and interventions as stated above. 1827: The patient was evaluated in room B3. A complete history and physical examination was performed. 1834: Zofran Inj 4mg IV, Morphine Sulfate 6mg IV. 1850: Sodium Chloride 1000 ml @ 999 mls/hr IV. 2010: I spoke to Dr. Bolanos of [facility]. He will evaluate the patient for further management. 2021: Upon reevaluation, the patient is doing well.I discussed my findings with the patient and she understands and agrees with the treatment plan. Based on the patients age, coexisting illnesses, exam and lab findings the decision to treat as an inpatient was made. The patient remained stable while under my care. The patient will be evaluated for further management. Medical Decision Differential diagnoses includes but is not limited to gastritis, peptic ulcer disease, GERD, gallbladder disease, pancreatitis, small bowel obstruction, acute coronary syndrome, pericarditis, ischemic bowel, irritable bowel disease, irritable bowel syndrome, appendicitis, diverticulitis, malignancy, hernia, urinary tract infection, torsion, /ectopic , perforation, trauma, infectious. Patient is a 31-year-old female who presents to ER for diffuse abdominal pain located in the epigastric/left upper quadrant. Associated with nausea and vomiting. History of pancreatitis. Previous cholecystectomy. Follows with GI. Pain is consistent with previous pancreatitis. CBC all BMP, LFTs, bilirubin and lipase was unremarkable. UA was negative. was negative. Patient was given IV fluids, Zofran and pain medications. She has significant improvement of her pain. She has had several narcotic doses as an outpatient. As she is unable to keep anything down and she was discussed with internal medicine for observation chronic pancreatitis which acutely worsened. Abdominal ultrasound was unremarkable of the pancreas. Medication Reconcilliation Current Medication List: was personally reviewed by me Blood Pressure Screening Patient's blood pressure: Elevated blood pressure Blood pressure disposition: Elevated BP felt to be situational Consults Time Called: 2004 Consulting Physician: Dr. Luis Miguel Carlos Returned Call: 2010 2010: I spoke to Dr. Bolanos of [facility]. He will evaluate the patient for further management. Impression Primary Impression: Pancreatitis Scribe Attestation The scribe's documentation has been prepared under my direction and personally reviewed by me in its entirety. I confirm that the note above accurately reflects all work, treatment, procedures, and medical decision making performed by me. Departure Information Dispostion Being Evaluated By Hospitalist Referrals Xander Wyatt M.D. (PCP) Patient Instructions My [facility] Problem Qualifiers Primary Impression: Pancreatitis Chronicity: acute Pancreatitis type: unspecified pancreatitis type Acute pancreatitis complication: unspecified Qualified Codes: K85.90 - Acute pancreatitis without necrosis or infection, unspecified
[2017-03-19] MEDS: MoRPHine SULFATE 2 MG/ML CARP IV PRN (23:50)
[2017-03-20] MEDS: SODIUM CHLORIDE 0.9% 1000ML 1,000 ML IV SCH ×3 (05:24→21:26)
[2017-03-20] MEDS: MoRPHine SULFATE 2 MG/ML CARP IV PRN ×4 (05:28→21:26)
[2017-03-20] MEDS: LEVOTHYROXINE 150 MCG TAB PO SCH (05:33)
[2017-03-20 07:27] LABS: HEMATOCRIT 34.4 % (37-47); MEAN CELL VOLUME 84.7 fL (80-100); MEAN CORPUSCULAR HEMOGLOBIN 27.8 pg (25-34); MEAN CORPUSCULAR HGB CONC 32.8 g/dl (32-36); MEAN PLATELET VOLUME 10.1 fL (7.4-10.4); PLATELET COUNT 274 K/uL (130-400); RED BLOOD COUNT 4.06 M/uL (4.2-5.4); WHITE BLOOD COUNT 7.66 K/uL (4.8-10.8)
[2017-03-20 07:35] VITALS: BP 93/61; PULSE 73; TEMP 36.8; O2SAT 97
[2017-03-20 07:53] LABS: BUN/CREATININE RATIO 13.4 (10-20); CALCIUM 8.2 mg/dl (8.5-10.1); CREATININE 0.67 mg/dl (0.60-1.20); POTASSIUM 3.7 mmol/L (3.5-5.1)
[2017-03-20 08:04] LABS: THYROID STIMULATING HORMONE 0.347 uIu/ml (0.300-4.500)
[2017-03-20] MEDS: HYDROXYCHLOROQUINE SULFATE 200 MG TAB PO SCH (08:14)
[2017-03-20 16:00] VITALS: BP 121/78; PULSE 66; TEMP 36.9; O2SAT 97
[2017-03-20] MEDS ORDERED: ONDANSETRON 4MG OD TAB SL PRN (16:30)
[2017-03-20] MEDS ORDERED: PROMETHAZINE HCL 25 MG TAB PO PRN (16:30)
[2017-03-20] MEDS ORDERED: ACETAMINOPHEN 325 MG TAB PO PRN (16:30)
--- NOTE | 2017-03-20 19:41 | Progress Note ---
Internal Med Progress Note Date of Service: Mar 20, 2017. Provider Documentation: SUBJECTIVE: abdominal pain has improved still have epigastric tenderness 6/10 no nausea or vomiting diet advanced to clears able to tolerate no diarrhea OBJECTIVE: Vital Signs-as noted below Exam: General-young female , obese , no apparent distress Eyes-sclera non icteric , PERRLA/EOMI ENT-normal exam Neck-no thyromegaly , trachea midline Lungs-clear to auscultate , no wheeze or rales Heart-regular S1/S2 Abdomen-soft, + mid epigastric tenderness , no rebound, bowel sound active Extremities-no rash ,edema or deformity Neuro-AAO x3 ,no focal neurological deficit Lab data as noted below. ASSESSMENT & PLAN: Epigastric Abdominal/Vomiting/Diarrhea symptom has resolved able to tolerate clear diet , ordered to advance to low fat diet as tolerated Hx of chronic pancreatitis possible related to viral gastroenteritis vs pancreatitis Lipase normal U/S pancreas showed unchanged mild pancreatic ductal dilation of unknown etiology without obstructing stone or lesion identified. pt been following with [facility] GI Dr Willett had EUS /ERCP in past GI consult requested Hypothyroidism Continue levothyroxine Obesity Counseling on weight loss/diet and exercise Undifferentiated Connective Tissue Disease Continue Plaquenil DVT px on SCDs/ Ambulate CODE STATUS FULL CODE DISPOSITION possible discharge home tomorrow Vital Signs: Date Time Temp Pulse Resp B/P (MAP) Pulse Ox O2 Delivery O2 Flow Rate FiO2 03/20/17 16:00 36.9 66 18 121/78 (92) 97 Room Air 03/20/17 16:00 Room Air 03/20/17 08:00 Room Air 03/20/17 07:35 36.8 73 18 93/61 (72) 97 03/20/17 00:00 Room Air 03/19/17 23:23 36.8 68 20 102/68 (79) 97 Room Air 03/19/17 21:54 37.2 87 18 104/78 95 Room Air 03/19/17 21:15 85 98/66 97 03/19/17 20:35 110/75 Lab Results: Results Past 24 Hours Test 03/20/17 07:05 Range/Units White Blood Count 7.66 4.8-10.8 K/uL Red Blood Count 4.06 4.2-5.4 M/uL Hemoglobin 11.3 12.0-16.0 g/dL Hematocrit 34.4 37-47 % Mean Corpuscular Volume 84.7 80-100 fL Mean Corpuscular Hemoglobin 27.8 25-34 pg Mean Corpuscular Hemoglobin Concent 32.8 32-36 g/dl RDW Standard Deviation 43.2 36.4-46.3 fL RDW Coefficient of Variation 14.0 11.5-14.5 % Platelet Count 274 130-400 K/uL Mean Platelet Volume 10.1 7.4-10.4 fL Sodium Level 143 136-145 mmol/L Potassium Level 3.7 3.5-5.1 mmol/L Chloride Level 110 98-107 mmol/L Carbon Dioxide Level 24 21-32 mmol/L Anion Gap 9.0 3-11 mmol/L Blood Urea Nitrogen 9 7-18 mg/dl Creatinine 0.67 0.60-1.20 mg/dl Est Creatinine Clear Calc Drug Dose 166.6 ml/min Estimated GFR () 136.7 Estimated GFR (Non- 118.0 BUN/Creatinine Ratio 13.4 10-20 Random Glucose 84 70-99 mg/dl Calcium Level 8.2 8.5-10.1 mg/dl Lipase 364 73-393 U/L Thyroid Stimulating Hormone (TSH) 0.347 0.300-4.500 uIu/ml
--- NOTE | 2017-03-20 19:43 | Discharge Instructions ---
Discharge Instructions Date of Service Mar 20, 2017. Admission Reason for Admission: Epigastric Abd Pain Discharge Discharge Diagnosis / Problem: ABDOMINAL PAIN /NAUSEA Discharge Goals Goal(s): Decrease discomfort, Improve function, Improve disease control, Diagnostic testing Activity Recommendations Activity Limitations: resume your previous activity . Instructions / Follow-Up Instructions / Follow-Up HOSPITAL FOLLOW UP : 03/27/2017 2:40 PM Xander Wyatt MD [facility] Current Hospital Diet Patient's current hospital diet: Low Fat Diet Discharge Diet Recommended Diet: Low Fat Diet Pending Studies Studies pending at discharge: no Medical Emergencies . Who to Call and When: Medical Emergencies: If at any time you feel your situation is an emergency, please call 911 immediately. . Non-Emergent Contact Non-Emergency issues call your: Primary Care Provider . . "Provider Documentation" section prepared by Federica Lewis. . VTE Core Measure Inpt VTE Proph given/why not?: SCD's
[2017-03-20 23:43] VITALS: BP 105/68; PULSE 62; TEMP 36.9; O2SAT 96
[2017-03-21] MEDS: MoRPHine SULFATE 2 MG/ML CARP IV PRN ×2 (03:48→16:48)
[2017-03-21] MEDS: SODIUM CHLORIDE 0.9% 1000ML 1,000 ML IV SCH ×2 (05:38→13:53)
[2017-03-21] MEDS: LEVOTHYROXINE 150 MCG TAB PO SCH (05:38)
[2017-03-21 07:59] VITALS: BP 131/86; PULSE 81; TEMP 36.8; O2SAT 100
[2017-03-21] MEDS: HYDROXYCHLOROQUINE SULFATE 200 MG TAB PO SCH (09:32)
--- NOTE | 2017-03-21 10:58 | Gastrointestinal Consultation ---
Gastrointestinal Consultation Date of Consultation: Mar 21, 2017 Attending Physician: Federica Lewis Consulting Physician: Nithin Lema Reason for Consultation: Abd pain ? pancreatitis History of Present Illness Patient is a 31 year old female who presented to ED yesterday for c/o abd pain mostly across upper quadrants which started over the weekend. On Sunday started to have associated N/V, loose stools. Denies any rectal bleeding. Yesterday loose stools stopped, but restarted again after she had low fat breakfast this AM. She denies other symptoms of fever, chills, CP, SOB. Denies any sick contact , travel or use of antibx. She has hx of chronic pancreatitis, hx of pancreas duct stone, s/p sphincterectomy and pancreatic/biliary ductal stent placements. Last ERCP by Dr. Willett in 2013. Pt reports she's been feeling well w/o pancreatitis attacks and usually when she gets abd pain, she can manage it at home w Oxycodone Rx and changing her diet. She is a non smoker and denies ETOH uses. Upon eval, her labs showed grossly normal CBC, CMP. LFTs and lipase normal as well. Pancreas u/s: 1. Prior cholecystectomy. Mild dilation of the common bile duct is likely secondary to postcholecystectomy state. 2. Unchanged mild pancreatic ductal dilation of unknown etiology without obstructing stone or lesion identified. 3. Probable fatty infiltration of the liver She is on low fat diet, did have loose stools after breakfast this AM. She is feeling better, no more nausea/vomiting, abd pain minimal. Past Medical/Surgical History Medical Problems: (1) Epigastric abdominal pain Status: Acute (2) Epigastric abdominal pain Status: Acute (3) Morbid obesity with BMI of 50.0-59.9, adult Status: Acute (4) Pancreatitis Status: Acute Past Medical History: As above, depressive/anxiety disorder, connective tissue disease, Raynaud, GERD , cholecystitis. Past Surgical History: Cholecystectomy Tubal Ligation Family History Diabetes mellitus FH: [place] (myocardial infarction) FHx: cancer FHx: coronary artery disease FHx: gallbladder disease Hypertension Social History Smoking Status: Never Smoker Alcohol Use: none Drug Use: none Marital Status: Housing Status: lives with family Occupation Status: unemployed Allergies Coded Allergies: Adhesives (Verified Allergy, Intermediate, REDDENED RASH, 08/31/16) Current Medications Home Meds and Scripts Medications Dose Route/Sig Max Daily Dose Days Date Category Dose Instructions Levothyroxine Sodium 150 Mcg Tab 150 Mcg PO QAM 03/19/17 Reported TAKE THIS MEDICATION ONCE DAILY 30 MINUTES BEFORE BREAKFAST OR ANY OTHER MEDICATIONS Plaquenil (Hydroxychloroquine Sulfate) 200 Mg Tab 200 Mg PO DAILY 03/19/17 Reported Zofran Odt (Ondansetron HCl) 4 Mg Tab 4 Mg SL Q4H PRN 03/19/17 Reported ALLOW TABLET TO DISSOLVE ON TONGUE Promethazine HCl 25 Mg Tab 25 Mg PO Q6H PRN 12/29/15 Reported Oxycodone HCl 5 Mg Tab 5 Mg PO Q8 PRN 12/29/15 Reported Review of Systems Constitutional: No fever, No chills Respiratory: No cough, No shortness of breath Cardiac: No chest pain Abdomen: + pain (improved), + nausea (improved), + diarrhea, No vomiting, No GI bleeding Physical Exam Date Time Temp Pulse Resp B/P (MAP) Pulse Ox O2 Delivery O2 Flow Rate FiO2 03/21/17 08:00 Room Air 03/21/17 07:59 36.8 81 20 131/86 (101) 100 Room Air 03/21/17 00:52 Room Air 03/20/17 23:43 36.9 62 18 105/68 (80) 96 Room Air 03/20/17 16:00 36.9 66 18 121/78 (92) 97 Room Air 03/20/17 16:00 Room Air General Appearance: WD/WN, no apparent distress, + obese Eyes: normal inspection, PERRL, EOMI Neck: supple, no JVD, trachea midline Respiratory/Chest: normal breath sounds, no respiratory distress, no accessory muscle use, + respiratory distress Cardiovascular: no gallop, no murmur Abdomen: normal bowel sounds, non tender, soft Extremities: normal inspection, no pedal edema, no calf tenderness Neurologic/Psych: alert, normal mood/affect, oriented x 3 Skin: normal color, no jaundice, no rash Impression Patient is a 31 year old female w upper quadrants abd pain associated w n/v/d. Diarrhea had stopped after 1 day but having loose stools again after eating low fat diet. She has hx of chronic pancreatitis, but lipase and LFTs are normal. Pancreas u/s showed majority of pancreas obscured by bowels but visualized areas are normal. She is doing quite well, said n/v, pain is improved, abd exam benign today. Less likely she has an acute pancreatitis attack, ? viral gastroenteritis. Plan - Stool cx and Cdiff if diarrhea again - Low fat, bland diet - Ok for DC home if tolerating lunch well. I performed a history and physical examination of the patient. I have discussed the patient's case, impression and plan with MADELEINE Obrien. Her note reflects my findings and plan. No signs of acute pancreatitis. Tolerating diet. Nithin Lema MD
[2017-03-21 15:24] VITALS: BP 148/95; PULSE 94; TEMP 36.9; O2SAT 99
--- NOTE | 2017-03-21 18:51 | Progress Note ---
Internal Med Progress Note Date of Service: Mar 21, 2017. Provider Documentation: SUBJECTIVE: started on low fat diet today had abdominal pain after meals two episode of diarrhea this Am no further loose bowel movement this evening mid abdominal pain 6/10 -improved after taking oxycodone ( pt's home pain medication ) OBJECTIVE: Vital Signs-as noted below Exam: General-young female , obese , no apparent distress Eyes-sclera non icteric , PERRLA/EOMI ENT-normal exam Neck-no thyromegaly , trachea midline Lungs-clear to auscultate , no wheeze or rales Heart-regular S1/S2 Abdomen-soft, + mid epigastric tenderness , no rebound, bowel sound active Extremities-no rash ,edema or deformity Neuro-AAO x3 ,no focal neurological deficit Lab data as noted below. ASSESSMENT & PLAN: Epigastric Abdominal/Vomiting/Diarrhea diet advance to low fat diet -had intermittent abdominal pain after meal Hx of chronic pancreatitis possible related to viral gastroenteritis vs pancreatitis Lipase normal U/S pancreas showed unchanged mild pancreatic ductal dilation of unknown etiology without obstructing stone or lesion identified. 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
[2017-03-21 23:20] VITALS: BP 113/75; PULSE 73; TEMP 37.3; O2SAT 99
[2017-03-22] MEDS: OXYCODONE HCL IR 5 MG TAB (IMMEDIATE RELEASE) PO PRN ×2 (00:31→08:40)
[2017-03-22] MEDS: LEVOTHYROXINE 150 MCG TAB PO SCH (06:30)
[2017-03-22] MEDS ORDERED: CALCIUM CARBONATE 500 MG CHEWABLE PO PRN (06:45)
[2017-03-22 07:14] VITALS: BP 129/89; PULSE 64; TEMP 36.4; O2SAT 100
[2017-03-22] MEDS ORDERED: CALCIUM CARBONATE 500 MG CHEWABLE PO ONE (07:15)
[2017-03-22] MEDS: HYDROXYCHLOROQUINE SULFATE 200 MG TAB PO SCH (08:40)
[2017-03-22 11:48] VITALS: BP 129/89; PULSE 64; TEMP 36.4; O2SAT 100
--- NOTE | 2017-03-22 18:57 | Discharge Summary ---
Discharge Summary Date of Service Mar 22, 2017. Discharge Summary Admission Date: Mar 19, 2017 at 20:52 Discharge Date: Mar 22, 2017 Discharge Disposition: Home Principal Diagnosis: ABDOMINAL PAIN /NAUSEA Procedures: ULTRASOUND OF PANCREAS : IMPRESSION: 1. Prior cholecystectomy. Mild dilation of the common bile duct is likely secondary to postcholecystectomy state. 2. Unchanged mild pancreatic ductal dilation of unknown etiology without obstructing stone or lesion identified. 3. Probable fatty infiltration of the liver. Consultations: [facility] Medication Reconciliation Continued Medications: Hydroxychloroquine Sulfate (Plaquenil) 200 Mg Tab 200 MG PO DAILY Levothyroxine Sodium (Levothyroxine Sodium) 150 Mcg Tab 150 MCG PO QAM TAKE THIS MEDICATION ONCE DAILY 30 MINUTES BEFORE BREAKFAST OR ANY OTHER MEDICATIONS Ondasetron Odt (Zofran Odt) 4 Mg Tab 4 MG SL Q4H PRN for Nausea, TAB ALLOW TABLET TO DISSOLVE ON TONGUE Oxycodone HCl (Oxycodone HCl) 5 Mg Tab 5 MG PO Q8 PRN for Pain Promethazine HCl (Promethazine HCl) 25 Mg Tab 25 MG PO Q6H PRN for Nausea or Vomiting Referrals At Discharge Follow up Referrals: Physician Referral - 03/27/17 with Xander Wyatt M.D. 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 Pt said that she has been having abdominal pain located in the epigastric area that began on Sunday. Describes pain as sharp, grade 10/10, radiating to the LUQ and goes to her back. Pt said that she has been taking her oxycodone with no relief. She said that today she develops multiples episodes vomiting and watery diarrhea. She said that her symptoms are similar to her previous episodes of pancreatitis. She said that she has not been having any pancreatitis in the past year. She said that she recalled that she ate a sandwich on Sunday before starting to have the pain. She said that she felt warm on Sunday and took a Tylenol. Denies any recent abx used, traveling or sick contact. Denies any chest pain, palpitation, dizziness, SOB, dysuria and no alcohol intake. Physical Exam (per Admitting): General Appearance: WD/WN, + mild distress Head: normocephalic, atraumatic Eyes: PERRL, EOMI ENT: hearing grossly normal Neck: no JVD, trachea midline Respiratory/Chest: normal breath sounds, no respiratory distress, no accessory muscle use Cardiovascular: no edema, no JVD, + tachycardia Abdomen/GI: soft, + tenderness Back: no CVA tenderness Extremities/Musculoskelatal: no calf tenderness Neurologic/Psych: no motor/sensory deficits, alert, oriented x 3 Skin: warm/dry Hospital Course Epigastric Abdominal/Vomiting/Diarrhea symptom has resolved tolerating low fat diet well Hx of chronic pancreatitis possible related to viral gastroenteritis vs pancreatitis Lipase normal U/S pancreas showed unchanged mild pancreatic ductal dilation of unknown etiology without obstructing stone or lesion identified. pt been following with [facility] GI Dr Willett had EUS /ERCP in past GI consult requested -appreciate input pt's symptom possibly due to viral gastroenteritis no evidence of pancreatitis stable to be discharged home today Hypothyroidism Continue levothyroxine Obesity Counseling on weight loss/diet and exercise Undifferentiated Connective Tissue Disease Continue Plaquenil DVT px on SCDs/ Ambulate CODE STATUS FULL CODE DISPOSITION stable to be discharge home today PHYSICAL EXAM ON DAY OF DISCHARGE : Exam: General-young female , obese , no apparent distress , finished meals with out any discomfort, dressed up to go home Eyes-sclera non icteric , PERRLA/EOMI ENT-normal exam Neck-no thyromegaly , trachea midline Lungs-clear to auscultate , no wheeze or rales Heart-regular S1/S2 Abdomen-soft, non tender , no rebound, bowel sound active no reports of diarrhea today Extremities-no rash ,edema or deformity Neuro-AAO x3 ,no focal neurological deficit Total time spent on discharge = 40 MIN This includes examination of the patient, discharge planning, medication reconciliation, and communication with other providers. Discharge Instructions Discharge Instructions Date of Service Mar 20, 2017. Admission Reason for Admission: Epigastric Abd Pain Discharge Discharge Diagnosis / Problem: ABDOMINAL PAIN /NAUSEA Discharge Goals Goal(s): Decrease discomfort, Improve function, Improve disease control, Diagnostic testing Activity Recommendations Activity Limitations: resume your previous activity . Instructions / Follow-Up Instructions / Follow-Up HOSPITAL FOLLOW UP : 03/27/2017 2:40 PM Xander Wyatt MD Family [facility] Current Hospital Diet Patient's current hospital diet: Low Fat Diet Discharge Diet Recommended Diet: Low Fat Diet Pending Studies Studies pending at discharge: no Medical Emergencies . Who to Call and When: Medical Emergencies: If at any time you feel your situation is an emergency, please call 911 immediately. . Non-Emergent Contact Non-Emergency issues call your: Primary Care Provider . . "Provider Documentation" section prepared by Federica Lewis. . VTE Core Measure Inpt VTE Proph given/why not?: SCD's Additional Copies To Xander Wyatt M.D.
== END 2017-03-22 12:30 | disposition home or self-care (01) | DRG 392 ==
LOC: C.EDB 18:17 → C.MS2W 20:52 → ENRESERV 21:05
PROVIDERS: ADMIT Internal Medicine; ATTEND Hospitalist
DX: R10.9 Unspecified abdominal pain (principal); K86.1 Other chronic pancreatitis; Z68.43 Body mass index [BMI] 50.0-59.9, adult; E03.9 Hypothyroidism, unspecified; F32.9 Major depressive disorder, single episode, unspecified; E66.9 Obesity, unspecified; Z90.49 Acquired absence of other specified parts of digestive tract; Z83.3 Family history of diabetes mellitus; Z80.9 Family history of malignant neoplasm, unspecified

== ENCOUNTER 2017-05-02 16:55 | Emergency (ER) | payer OTHER ==
[~2017-05-02] VITALS: Ht 162.6 cm; Wt 131.7 kg
[~2017-05-02 16:55] MED LIST changes: -FLUO40CA8 PO; +HYDR200T5 PO; -LEVO112T4 PO; +LEVO150T9 PO; +ONDA4TAB10 SL; -ONDA4TAB46 PO; +OXYC-609 PO; +PROM25TA16 PO; -SENN-61 PO
[2017-05-02 16:59] VITALS: TEMP 37.1; Ht 162.6 cm; Wt 131.7 kg
[2017-05-02] MEDS ORDERED: SODIUM CHLORIDE 0.9% 1000ML 2,000 ML IV STA (17:18)
[2017-05-02] MEDS ORDERED: HYDROmorphone INJ 1 MG/ML SYR IV STA ×2 (17:18→19:05)
[2017-05-02] MEDS ORDERED: FAMOTIDINE 20MG/5ML IV PUSH IV STA (17:18)
[2017-05-02] MEDS ORDERED: ONDANSETRON INJ 2 MG/ML 2 ML VIAL IV STA (17:18)
[2017-05-02 18:16] LABS: BASO % 0.1 %; BASO ABS # 0.01 K/uL (0-0.2); COMPLETE YES; EOS % 0.2 %; HEMATOCRIT 38.4 % (37-47); IG% 0.3 %; LYMPH ABS # 1.46 K/uL (1.2-3.4); MEAN CELL VOLUME 84.2 fL (80-100); MEAN CORPUSCULAR HEMOGLOBIN 27.9 pg (25-34); MEAN CORPUSCULAR HGB CONC 33.1 g/dl (32-36); MEAN PLATELET VOLUME 10.2 fL (7.4-10.4); MONO % 6.9 %; NEUT % 78.5 %; PLATELET COUNT 307 K/uL (130-400); RED BLOOD COUNT 4.56 M/uL (4.2-5.4)
[2017-05-02 18:47] LABS: BUN/CREATININE RATIO 14.3 (10-20); CALCIUM 8.5 mg/dl (8.5-10.1); CREATININE 0.7 mg/dl (0.60-1.20); POTASSIUM 3.9 mmol/L (3.5-5.1)
[2017-05-02 18:50] LABS: ALB/GLOB RATIO 0.7 (0.9-2)
--- NOTE | 2017-05-02 20:12 | EMERGENCY ROOM VISIT NOTE ---
History First contact with patient: 17:04 Chief Complaint: ABDOMINAL PAIN Stated Complaint: ABD PAIN,VOMITING History of Present Illness Patient is a 31-year-old white female with past medical history significant for obesity, chronic pancreatitis, hypothyroidism, mixed connective tissue disorder and status post cholecystectomy who presents to the emergency department for evaluation of epigastric abdominal pain, nausea, dry heaves and diarrhea. Her symptoms started yesterday. She states that she started feeling poorly after she ate buttered bread. She was able to treat her symptoms at home with Zofran and oxycodone which initially were helping, then became ineffective. Overnight , she woke and felt feverish. She reports that her temperature was documented at 101F orally for which she took Tylenol which helped to bring her fever down. After that, she vomited yellowish/green emesis, and developed multiple episodes of diarrhea. She is unable to quantify the diarrhea. She does report that it is loose and watery. Her last bowel movement was prior to coming to the emergency department. She has subsequently noted nausea and dry heaves. She notes a constant, stabbing epigastric pain that radiates through to her back that she rates a 10/10. She did not try taking any additional medications for her symptoms. She reports a history of pancreatitis, and states that this does feel similar to her prior episodes. She has not been ill recently with any other cold or upper respiratory symptoms. She denies any sick contacts at home with similar symptoms. She denies any recent antibiotic use. She has history of chronic pancreatitis and follows with Dr. Willett of gastroenterology. Pt reports she's been doing well regarding episodes of pancreatitis, and states that when she gets pain, she can usually manage at home with oxycodone, Zofran and dietary modifications. She denies alcohol use. Review of Systems Review of systems as per HPI. All other systems reviewed were negative. 10 systems reviewed. Past Medical/Surgical History Medical Problems: (1) Acute pancreatitis (2) Cholecystectomy (3) Chronic pancreatitis (4) Depressive disorder (5) Encounter for pancreatic duct stent exchange (6) Epigastric pain (7) Hx of pancreatitis (8) Intrauterine (9) Normal labor (10) Obesity, Nos (11) Pancreatic stent migration (12) Pancreatitis, chronic (13) Sterilization Surgical Problems: (1) H/O esophagogastroduodenoscopy (2) History of cholecystectomy (3) Tubal Ligation Status Electronic medical records are reviewed and summarized as above/below. See Problem List. Family History Diabetes mellitus FH: [place] (myocardial infarction) FHx: cancer FHx: coronary artery disease FHx: gallbladder disease Hypertension Social History Smoking Status: Never Smoker Alcohol Use: none Drug Use: none Marital Status: Housing Status: lives with family Occupation Status: disabled Current/Historical Medications Scheduled Hydroxychloroquine Sulfate (Plaquenil), 200 MG PO DAILY Levothyroxine Sodium (Levothyroxine Sodium), 150 MCG PO QAM Scheduled PRN Ondasetron Odt (Zofran Odt), 4 MG SL Q4H PRN for Nausea Oxycodone HCl (Oxycodone HCl), 5 MG PO Q8 PRN for Pain Promethazine HCl (Promethazine HCl), 25 MG PO Q6H PRN for Nausea or Vomiting Physical Exam Vital Signs Date Time Temp Pulse Resp B/P (MAP) Pulse Ox O2 Delivery O2 Flow Rate FiO2 05/02/17 20:27 85 20 132/77 100 05/02/17 19:30 74 18 118/81 95 Room Air 05/02/17 16:59 37.1 123 16 148/94 99 Room Air Physical Exam CONSTITUTIONAL: Patient is an uncomfortable-appearing morbidly obese 31-year- old white female who is awake and alert and sitting upright on the gurney in mild distress due to her abdominal pain. EYES: Pupils equal, round, reactive to light and accommodation. EOMs intact without nystagmus. Sclera are anicteric. ENT: Tympanic membranes intact, with normal landmarks. External canals are clear. Oral and nasopharynx are clear. Mucous membranes are moist, no lesions , tongue and gums appear normal. NECK: No bruits auscultated. Supple without lymphadenopathy. No thyromegaly. No meningeal signs. Full active range of motion without discomfort. CARDIOVASCULAR: Regular rate and rhythm, with normal S1 and S2, no murmur or gallop or rub is heard. No carotid bruits auscultated. No JVD. Peripheral pulses easily palpable. RESPIRATORY: Breath sounds equal and clear to auscultation without wheezes, rales, or rhonchi heard. Full and equal chest expansion without accessory muscle use or retractions. ABDOMEN: Bowel sounds are present. Abdomen is soft, obese, tender in the epigastric region, without guarding, rebound or rigidity. INTEGUMENTARY: No lesions or rash, normal skin turgor. LYMPH: No lymphadenopathy. Medical Decision & Procedures Laboratory Results 05/02/17 17:40 Red Blood Count 4.56, Mean Corpuscular Volume 84.2, Mean Corpuscular Hemoglobin 27.9, Mean Corpuscular Hemoglobin Concent 33.1, Mean Platelet Volume 10.2, Neutrophils (%) (Auto) 78.5, Lymphocytes (%) (Auto) 14.0, Monocytes (%) (Auto) 6.9, Eosinophils (%) (Auto) 0.2, Basophils (%) (Auto) 0.1, Neutrophils # (Auto) 8.16, Lymphocytes # (Auto) 1.46, Monocytes # (Auto) 0.72, Eosinophils # (Auto) 0.02, Basophils # (Auto) 0.01 05/02/17 17:40 Test 05/02/17 17:40 05/02/17 19:30 White Blood Count 10.40 K/uL (4.8-10.8) Red Blood Count 4.56 M/uL (4.2-5.4) Hemoglobin 12.7 g/dL (12.0-16.0) Hematocrit 38.4 % (37-47) Mean Corpuscular Volume 84.2 fL (80-100) Mean Corpuscular Hemoglobin 27.9 pg (25-34) Mean Corpuscular Hemoglobin Concent 33.1 g/dl (32-36) Platelet Count 307 K/uL (130-400) Mean Platelet Volume 10.2 fL (7.4-10.4) Neutrophils (%) (Auto) 78.5 % Lymphocytes (%) (Auto) 14.0 % Monocytes (%) (Auto) 6.9 % Eosinophils (%) (Auto) 0.2 % Basophils (%) (Auto) 0.1 % Neutrophils # (Auto) 8.16 K/uL (1.4-6.5) Lymphocytes # (Auto) 1.46 K/uL (1.2-3.4) Monocytes # (Auto) 0.72 K/uL (0.11-0.59) Eosinophils # (Auto) 0.02 K/uL (0-0.5) Basophils # (Auto) 0.01 K/uL (0-0.2) RDW Standard Deviation 42.8 fL (36.4-46.3) RDW Coefficient of Variation 14.1 % (11.5-14.5) Immature Granulocyte % (Auto) 0.3 % Immature Granulocyte # (Auto) 0.03 K/uL (0.00-0.02) Anion Gap 5.0 mmol/L (3-11) Est Creatinine Clear Calc Drug Dose 158.7 ml/min Estimated GFR () 134.8 Estimated GFR (Non- 116.3 BUN/Creatinine Ratio 14.3 (10-20) Calcium Level 8.5 mg/dl (8.5-10.1) Total Bilirubin 0.3 mg/dl (0.2-1) Aspartate Amino Transf (AST/SGOT) 10 U/L (15-37) Alanine Aminotransferase (ALT/SGPT) 20 U/L (12-78) Alkaline Phosphatase 57 U/L (45-117) Total Protein 7.6 gm/dl (6.4-8.2) Albumin 3.2 gm/dl (3.4-5.0) Globulin 4.4 gm/dl (2.5-4.0) Albumin/Globulin Ratio 0.7 (0.9-2) Lipase 185 U/L (73-393) Urine Test NEG (NEG) Medications Administered Medications (Trade) Dose Ordered Sig/René Route Start Time Stop Time Status Last Admin Dose Admin Sodium Chloride 2,000 ml @ 999 mls/hr Q2H1M STAT IV 05/02/17 17:18 05/02/17 19:18 DC 05/02/17 17:50 999 MLS/HR Ondansetron HCl (Zofran Inj) 4 mg NOW STAT IV 05/02/17 17:18 05/02/17 17:20 DC 05/02/17 17:51 4 MG Hydromorphone HCl (Dilaudid Inj) 1 mg NOW STAT IV 05/02/17 17:18 05/02/17 17:20 DC 05/02/17 17:51 1 MG Famotidine (Pepcid 20mg Iv Push) 20 mg ONE STAT IV 05/02/17 17:18 05/02/17 17:20 DC 05/02/17 17:51 20 MG Hydromorphone HCl (Dilaudid Inj) 1 mg NOW STAT IV 05/02/17 19:05 05/02/17 19:06 DC 05/02/17 19:27 1 MG ED Course The patient was seen and assessed as above. Her old records are reviewed, including her recent admission last month for nearly identical symptoms. I am familiar with her from prior ED visits. IV lock was initiated. She was hydrated with a total of 2 L of normal saline solution. Laboratory studies were collected including CBC with differential, CMP, lipase. Urine dip and test were performed. She was medicated with Pepcid 20 mg IV, Zofran 4 mg IV Dilaudid 1 mg IV. Patient's laboratory studies today are unremarkable. White count is normal at 10,400, H&H 12 and 38, platelet count 307,000. Electrolytes, renal functions and liver functions are all within normal limits and lipase is not elevated. The patient was reassessed. She appeared much more comfortable, was able to wean back and sit against the gurney in a semiupright position. Tachycardia had improved with hydration and analgesia and her heart rate was 85 beats per minute. She rated her pain a 7/10 at this time. She had not had any more diarrhea since arriving in the emergency department, and was able to get up and provide a urine sample. She was given an additional Dilaudid 1 mg IV. Urine dip was unremarkable, and test was negative. She was reassessed after the second dose of Dilaudid and reported that she felt much improved. Again, no further vomiting, dry heaves or diarrhea while in the emergency department. At this point she feels that she can manage her symptoms at home with her home medications. This certainly seems reasonable. She has history of chronic pancreatitis, but lipase and LFTs are normal. Pain is improved, abdominal exam is benign. Symptoms could be related to an exacerbation of her chronic abdominal pain, possibly related to a viral/ infectious gastroenteritis/colitis. Her presentation today is very similar to previous ED visits. She was unable to provide a stool sample to send for analysis, and certainly if her symptoms continue stool testing would be advised. Patient was ambulatory out of the emergency department, her is coming to pick her up. She rated her pain a 4/10 at discharge. Differential diagnoses include acute pancreatitis, exacerbation of chronic abdominal pain, gastritis, esophagitis, peptic ulcer disease, bowel obstruction , perforation, infectious versus inflammatory colitis/enteritis, food borne illness, among others. Medical Decision See Emergency Department course. [place] Drug Monitoring Program Search Results: patient reviewed within database Drug Monitoring Findings: Patient receives monthly narcotic prescriptions from her primary care provider, Dr. Wyatt. Medication Reconcilliation Current Medication List: was personally reviewed by me Blood Pressure Screening Patient's blood pressure: Elevated blood pressure Blood pressure disposition: Elevated BP felt to be situational Impression Primary Impression: Epigastric abdominal pain Additional Impression: Diarrhea Departure Information Referrals Xander Wyatt M.D. (PCP) Patient Instructions My [facility] Additional Instructions DO NOT drive, drink alcohol, operate machinery, or perform dangerous activities today. You were given medications in the ER that can affect your ability to safely function or operate a vehicle. Continue home medications and dietary modifications to manage your symptoms at home. Rest and drink plenty of fluids as tolerated. Slow sips of water or sports drinks are recommended instead of large amounts all at once. Continue current medications. Once your stomach is settled start with a clear liquid diet (jello, soup broth, etc.) and then advance as tolerated. You should avoid full, heavy meals for about 24 hrs from the time your symptoms resolved. Return to the ER immediately for worsening or persistent abdominal pain, vomiting, fevers, chest pains, difficulty breathing, black or bloody stools, worsening of your condition, or as needed. Return to the ER or follow up with your primary provider in 8-12 hours for a recheck of your current condition. Follow up with your primary physician or GI this week for a recheck of your current condition. Problem Qualifiers
[2017-05-02 20:27] VITALS: BP 132/77; PULSE 85; O2SAT 100
== END 2017-05-02 20:29 | disposition home or self-care (01) ==
LOC: C.EDB 16:56 → C.EDC 20:29
DX: R10.13 Epigastric pain (principal); R19.7 Diarrhea, unspecified; R11.0 Nausea; E66.9 Obesity, unspecified; E03.9 Hypothyroidism, unspecified; Z79.899 Other long term (current) drug therapy; Z87.19 Personal history of other diseases of the digestive system; Z82.49 Family history of ischemic heart disease and other diseases of the circulatory system; Z83.3 Family history of diabetes mellitus; Z83.79 Family history of other diseases of the digestive system

== ENCOUNTER 2021-12-19 12:57 | Inpatient (IN) ==
[2021-12-19] MEDS ORDERED: LORazepam 2 MG/1 ML VIAL IV STA (13:23)
[2021-12-19] MEDS ORDERED: diphenhydrAMINE 50 MG/ML VIAL IV STA (13:23)
[2021-12-19] MEDS ORDERED: ONDANSETRON INJ 2 MG/ML 2 ML VIAL IV STA (13:23)
--- NOTE | 2021-12-19 13:29 | Emergency Department Note ---
Impression & Plan Anxiety ED Provider Note NAME: SILVIA PARRA AGE: 36 SEX: F : 1985 ARRIVES VIA: Walk-In INFORMANT: [Patient] ED PROVIDER(S): [Niko Miller MD] CHIEF COMPLAINT: Illness HISTORY OF PRESENT ILLNESS: The patient is a 36-year-old female who presents to the ER with complaints of anxiety and feeling shaky and on edge. The patient was evaluated 4 times yesterday. The first evaluation in the ED was for abdominal pain with no acute findings noted. She then presented back with agitation that was thought secondary to droperidol. She was treated and felt improved. She then did a telehealth visit later for continued symptoms. She was told to come back to the ED. She was seen in the ED yesterday for the fourth time and given Cogentin. The patient states that today, she took her Cogentin when she felt anxious and on edge. It helped for a bit but then, she tried to take another Cogentin when she felt poorly once again. She vomited. The patient states that she is tearful, she is agitated, she has never felt like this before. She is not suicidal. She thinks she may need psychiatric help. There has been no cough or congestion. She has abdominal pain but this is chronic. She cannot identify any new stressors or situations in her life that would have prompted her to be more anxious and upset. REVIEW OF SYSTEMS: See HPI for pertinent positives and negatives. A total of ten systems were reviewed and were otherwise negative. PMHx/PSHx: See Below SOCIAL HISTORY: See Below. PHYSICAL EXAM: GENERAL: Patient is in mild distress, standing at the bedside, tearful. HEENT: No acute trauma, normocephalic atraumatic, mucous membranes moist, no nasal congestion, no scleral icterus. NECK: No stridor, no adenopathy, no meningismus, trachea is midline. LUNGS: Clear to auscultation bilaterally, no wheeze, no rhonchi, breath sounds equal. HEART: Without murmurs gallops or rubs, regular rate and rhythm. ABDOMEN: Soft, nontender, bowel sounds positive, no peritonitis. Obese. EXTREMITIES: No cyanosis or edema, full range of motion of all the joints without pain or difficulty, no signs for acute trauma. NEUROLOGIC: Oriented x 3, no acute motor or sensory deficits, no focal weakness. SKIN: No rash, no jaundice, no diaphoresis. Psychiatric: Cooperative, voluntary, denies being suicidal. Feels very anxious DIFFERENTIAL DIAGNOSIS: Mood disorder, infection, hypoglycemia, suicidality, depression, anxiety, medication reaction, electrolyte abnormalities, cardiac sources, intracerebral event, toxicologic etiology, trauma, neurologic event, as well as other pathologies. EMERGENCY DEPARTMENT COURSE/PROCEDURES: MEDICAL DECISION MAKING: There is no leukocytosis or concerning anemia. There is a normal platelet count. No renal failure or significant electrolyte abnormality. No concerning liver enzyme elevation. TSH was slightly high however, the T4 was normal. testing was negative. Urinalysis did not show infection. Aspirin, Tylenol and alcohol levels were undetectable. Urine tox was negative. COVID test returned negative. The patient presents with ongoing anxiety. She cannot sit still. She cannot function like this at home. She was evaluated yesterday for similar symptoms initially thought secondary to the droperidol which she had received during her first visit. Patient received IV Ativan, IV Zofran and IV Benadryl. She is improved. I spoke with the patient. I do think she would benefit from a psychiatric evaluation. The patient was felt medically clear. She was seen by the psychiatry rn case mgr. She has been accepted to our hospital's psychiatric floor, 3 S. She will sign in voluntarily. Past Med/Surg History Medical History Anxiety Depression GERD (gastroesophageal reflux disease) Hypothyroid Morbid obesity with BMI of 50.0-59.9, adult Ovarian cyst Pancreatic stent migration Pancreatitis, chronic F/U DR TINO [place]HAW[place]S SOB (shortness of breath) on exertion OUT OF SHAPE Urinary tract infection Surgical History Encounter for pancreatic duct stent exchange NOW REMOVED H/O esophagogastroduodenoscopy History of bilateral tubal ligation History of cholecystectomy History of colonoscopy Family History Aunt Family history of diabetes mellitus Grandmother (Maternal) Family history of diabetes mellitus Other No pertinent family history Social History Smoking Status: Never smoker Second Hand Exposure: Yes (FATHER SMOKED); Hx Alcohol Use: No Hx Substance Use: No Preferred Language: Mongolian Communication Ability: Effective Senior Linux Systems Engineer Required: No Beliefs That Will Affect Care: None Current Living Situation: Spouse current occupation: HOMEMAKER Feels Safe at Home: Yes Assistive Devices: Glasses Allergies Allergies Allergy/AdvReac Type Severity Reaction Status Date / Time adhesive Allergy Intermediate Rash-PATCH Verified 12/03/20 06:00 FROM [facility]ENT[facility] ropinirole AdvReac Anxiety Verified 12/18/21 12:20 Home Meds Home Medications Medication Instructions Recorded Confirmed oxycodone 5 mg tablet 5 mg PO Q6H PRN Pain 05/23/18 12/19/21 ondansetron 4 mg disintegrating 4 mg PO Q4H PRN Nausea 12/31/18 12/19/21 tablet acetaminophen 500 mg capsule 1,000 mg PO Q6H PRN Pain 11/26/20 12/19/21 citalopram 20 mg tablet 20 mg PO QAM 12/19/21 12/19/21 levothyroxine 125 mcg tablet 125 mcg PO DAILY 12/19/21 12/19/21 Results & Data (ED) Vital Signs Vital Signs - 24 hr 12/19/21 12:59 12/19/21 13:47 Temperature 36.8 C Temperature Source Temporal Artery Scan Pulse Rate 86 Pulse Rate [Radial] 101 H Pulse Rhythm [Radial] Regular Pulse Strength [Radial] Normal Respiratory Rate 18 24 Respiratory Effort / Characteristics Non-Labored Respiratory Depth Normal Respiratory Pattern Regular Blood Pressure 139/90 Blood Pressure [Left Arm] 158/95 H Blood Pressure Mean 106 Blood Pressure Mean [Left Arm] 116 Blood Pressure Position [Left Arm] Lying Pulse Oximetry 96 97 Oxygen Delivery Method Room Air Room Air Sepsis Recent Fever Within 48 Hours No Sepsis New/Unexplained Change in Mental Status No Sepsis Action Taken by Nursing No Action Required Home Medications Current Medication List: was personally reviewed by me Laboratory Data Attestation: I reviewed the patient's lab results. Result diagrams: 12/19/21 13:40 12/19/21 13:40 Lab Results 12/19/21 12/19/21 12/19/21 Range/Units 13:40 13:40 13:40 WBC 9.74 (4.8-10.8) K/ul RBC 4.78 (3.93-5.22) M/uL Hgb 13.1 (12.0-16.0) g/dl Hct 40.3 (34.1-44.9) % MCV 84.3 (80.0-100.0) fL MCH 27.4 (25.0-34.0) pg MCHC 32.5 (32.0-36.0) g/dL RDW Std Deviation 42.7 (36.4-46.3) fL RDW Coeff of Jose 13.8 (11.5-14.5) % Plt Count 328 (130-400) K/uL MPV 10.2 (9.4-12.3) fL Immature Gran % (Auto) 0.3 % Neut % (Auto) 76.5 % Lymph % (Auto) 17.7 % Harvey % (Auto) 4.9 % Eos % (Auto) 0.3 % Baso % (Auto) 0.3 % Neut # (Auto) 7.45 H (1.4-6.5) K/uL Lymph # (Auto) 1.72 (1.2-3.4) K/uL Harvey # (Auto) 0.48 (0.24-0.82) K/uL Eos # (Auto) 0.03 (0-0.50) K/uL Baso # (Auto) 0.03 (0-0.2) K/uL Immature Gran # (Auto) 0.03 H (0.00-0.02) K/uL Sodium 136 (136-145) mmol/L Potassium 4.2 (3.5-5.1) mmol/L Chloride 103 (98-107) mmol/L Carbon Dioxide 26 (21-32) mmol/L Anion Gap 7 (3-11) BUN 10 (6-23) mg/dl Creatinine 0.86 (0.6-1.2) mg/dl Est Cr Clr Drug Dosing 132.6 ml/min Est GFR ( Amer) 101.4 ml/min Est GFR (Non-Af Amer) 87.5 ml/min BUN/Creatinine Ratio 11.6 (10-20) Glucose 107 H (70-99(Fasting)) mg/dl Calcium 9.4 (8.5-10.1) mg/dl Total Bilirubin 0.6 (0.2-1.0) mg/dl AST 17 (13-39) U/L ALT 19 (7-52) U/L Alkaline Phosphatase 55 (34-104) U/L Total Protein 7.9 (6.0-8.3) gm/dl Albumin 4.1 (3.4-5.0) gm/dl Globulin 3.8 (2.5-4.0) gm/dl Albumin/Globulin Ratio 1.1 (0.9-2) TSH 12.900 H (0.300-4.500) uIu/ml Free T4 0.71 (0.61-1.60) ng/dl HCG, Qual (Negative) Urine Color Urine Appearance (Clear) Urine pH (4.5-7.5) Ur Specific York (1.000-1.030) Urine Protein (Negative) Urine Glucose (UA) (Negative) Urine Ketones (Negative) Urine Blood (Negative) Urine Nitrite (Negative) Urine Bilirubin (Negative) Urine Urobilinogen (Negative) Ur Leukocyte Esterase (Negative) Urine WBC (Auto) (0-5) /hpf Urine RBC (Auto) (0-4) /hpf U Hyaline Cast (Auto) (0-5) /lpf U Epithel Cells (Auto) (0-5) /lpf Urine Bacteria (Auto) (Negative) Salicylates (3.0-30) mg/dl Urine Opiates Screen (Neg) Ur Methadone, Qual (Neg) Acetaminophen (10-30) ug/ml Urine Barbiturates (Neg) Ur Phencyclidine (PCP) (Neg) U Amphetamin/Meth Scrn (Neg) MDMA (Ecstasy) Screen (Neg) U Benzodiazepines Scrn (Neg) Ur Cocaine Metabolite (Neg) U Marijuana (THC) Screen (Neg) Ethyl Alcohol mg/dL (<10.0) mg/dl SARS-CoV-2, RNA, NAAT (NEGATIVE) 12/19/21 12/19/21 12/19/21 Range/Units 13:40 13:40 13:40 WBC (4.8-10.8) K/ul RBC (3.93-5.22) M/uL Hgb (12.0-16.0) g/dl Hct (34.1-44.9) % MCV (80.0-100.0) fL MCH (25.0-34.0) pg MCHC (32.0-36.0) g/dL RDW Std Deviation (36.4-46.3) fL RDW Coeff of Jose (11.5-14.5) % Plt Count (130-400) K/uL MPV (9.4-12.3) fL Immature Gran % (Auto) % Neut % (Auto) % Lymph % (Auto) % Harvey % (Auto) % Eos % (Auto) % Baso % (Auto) % Neut # (Auto) (1.4-6.5) K/uL Lymph # (Auto) (1.2-3.4) K/uL Harvey # (Auto) (0.24-0.82) K/uL Eos # (Auto) (0-0.50) K/uL Baso # (Auto) (0-0.2) K/uL Immature Gran # (Auto) (0.00-0.02) K/uL Sodium (136-145) mmol/L Potassium (3.5-5.1) mmol/L Chloride (98-107) mmol/L Carbon Dioxide (21-32) mmol/L Anion Gap (3-11) BUN (6-23) mg/dl Creatinine (0.6-1.2) mg/dl Est Cr Clr Drug Dosing ml/min Est GFR ( Amer) ml/min Est GFR (Non-Af Amer) ml/min BUN/Creatinine Ratio (10-20) Glucose (70-99(Fasting)) mg/dl Calcium (8.5-10.1) mg/dl Total Bilirubin (0.2-1.0) mg/dl AST (13-39) U/L ALT (7-52) U/L Alkaline Phosphatase (34-104) U/L Total Protein (6.0-8.3) gm/dl Albumin (3.4-5.0) gm/dl Globulin (2.5-4.0) gm/dl Albumin/Globulin Ratio (0.9-2) TSH (0.300-4.500) uIu/ml Free T4 (0.61-1.60) ng/dl HCG, Qual Negative (Negative) Urine Color Urine Appearance (Clear) Urine pH (4.5-7.5) Ur Specific [place] (1.000-1.030) Urine Protein (Negative) Urine Glucose (UA) (Negative) Urine Ketones (Negative) Urine Blood (Negative) Urine Nitrite (Negative) Urine Bilirubin (Negative) Urine Urobilinogen (Negative) Ur Leukocyte Esterase (Negative) Urine WBC (Auto) (0-5) /hpf Urine RBC (Auto) (0-4) /hpf U Hyaline Cast (Auto) (0-5) /lpf U Epithel Cells (Auto) (0-5) /lpf Urine Bacteria (Auto) (Negative) Salicylates < 3.0 L (3.0-30) mg/dl Urine Opiates Screen (Neg) Ur Methadone, Qual (Neg) Acetaminophen < 3 L (10-30) ug/ml Urine Barbiturates (Neg) Ur Phencyclidine (PCP) (Neg) U Amphetamin/Meth Scrn (Neg) MDMA (Ecstasy) Screen (Neg) U Benzodiazepines Scrn (Neg) Ur Cocaine Metabolite (Neg) U Marijuana (THC) Screen (Neg) Ethyl Alcohol mg/dL < 10.0 (<10.0) mg/dl SARS-CoV-2, RNA, NAAT (NEGATIVE) 12/19/21 12/19/21 12/19/21 Range/Units 13:40 14:50 14:50 WBC (4.8-10.8) K/ul RBC (3.93-5.22) M/uL Hgb (12.0-16.0) g/dl Hct (34.1-44.9) % MCV (80.0-100.0) fL MCH (25.0-34.0) pg MCHC (32.0-36.0) g/dL RDW Std Deviation (36.4-46.3) fL RDW Coeff of Jose (11.5-14.5) % Plt Count (130-400) K/uL MPV (9.4-12.3) fL Immature Gran % (Auto) % Neut % (Auto) % Lymph % (Auto) % Harvey % (Auto) % Eos % (Auto) % Baso % (Auto) % Neut # (Auto) (1.4-6.5) K/uL Lymph # (Auto) (1.2-3.4) K/uL Harvey # (Auto) (0.24-0.82) K/uL Eos # (Auto) (0-0.50) K/uL Baso # (Auto) (0-0.2) K/uL Immature Gran # (Auto) (0.00-0.02) K/uL Sodium (136-145) mmol/L Potassium (3.5-5.1) mmol/L Chloride (98-107) mmol/L Carbon Dioxide (21-32) mmol/L Anion Gap (3-11) BUN (6-23) mg/dl Creatinine (0.6-1.2) mg/dl Est Cr Clr Drug Dosing ml/min Est GFR ( Amer) ml/min Est GFR (Non-Af Amer) ml/min BUN/Creatinine Ratio (10-20) Glucose (70-99(Fasting)) mg/dl Calcium (8.5-10.1) mg/dl Total Bilirubin (0.2-1.0) mg/dl AST (13-39) U/L ALT (7-52) U/L Alkaline Phosphatase (34-104) U/L Total Protein (6.0-8.3) gm/dl Albumin (3.4-5.0) gm/dl Globulin (2.5-4.0) gm/dl Albumin/Globulin Ratio (0.9-2) TSH (0.300-4.500) uIu/ml Free T4 (0.61-1.60) ng/dl HCG, Qual (Negative) Urine Color Yellow Urine Appearance Clear (Clear) Urine pH 6.0 (4.5-7.5) Ur Specific York 1.010 (1.000-1.030) Urine Protein Negative (Negative) Urine Glucose (UA) Negative (Negative) Urine Ketones Negative (Negative) Urine Blood Negative (Negative) Urine Nitrite Negative (Negative) Urine Bilirubin Negative (Negative) Urine Urobilinogen Negative (Negative) Ur Leukocyte Esterase 1+ H (Negative) Urine WBC (Auto) 1-5 (0-5) /hpf Urine RBC (Auto) 0-4 (0-4) /hpf U Hyaline Cast (Auto) 1-5 (0-5) /lpf U Epithel Cells (Auto) >30 H (0-5) /lpf Urine Bacteria (Auto) Negative (Negative) Salicylates (3.0-30) mg/dl Urine Opiates Screen Neg (Neg) Ur Methadone, Qual Neg (Neg) Acetaminophen (10-30) ug/ml Urine Barbiturates Neg (Neg) Ur Phencyclidine (PCP) Neg (Neg) U Amphetamin/Meth Scrn Neg (Neg) MDMA (Ecstasy) Screen Neg (Neg) U Benzodiazepines Scrn Neg (Neg) Ur Cocaine Metabolite Neg (Neg) U Marijuana (THC) Screen Neg (Neg) Ethyl Alcohol mg/dL (<10.0) mg/dl SARS-CoV-2, RNA, NAAT NEGATIVE (NEGATIVE) Administered Medications Oxycodone HCl (Oxycodone Hcl Ir 5 Mg Tab (Immediate Release)) 5 mg PO Q6 PRN PRN Reason: Pain Stop: 01/02/22 17:24 Last Admin: 12/19/21 18:00 Dose: 5 mg Documented By: TLF Discontinued Medications Diphenhydramine HCl (Diphenhydramine 50 Mg/Ml Vial) 12.5 mg IV NOW STA Stop: 12/19/21 13:24 Last Admin: 12/19/21 13:39 Dose: 12.5 mg Documented By: CRESCENCIO Sodium Chloride (Nss 1000ml) 1,000 mls @ 999 mls/hr IV .[id number] BRIANNA Stop: 12/19/21 14:30 Last Infusion: 12/19/21 14:50 Dose: 0 mls/hr Documented By: Admin: 12/19/21 13:40 Dose: 999 mls/hr Documented By: CRESCENCIO Lorazepam (Lorazepam 2 Mg/1 Ml Vial) 1 mg IV NOW STA; Protocol Stop: 12/19/21 13:24 Last Admin: 12/19/21 13:39 Dose: 1 mg Documented By: CRESCENCIO Ondansetron HCl (Ondansetron Inj 2 Mg/Ml 2 Ml Vial) 4 mg IV NOW STA Stop: 12/19/21 13:24 Last Admin: 12/19/21 13:39 Dose: 4 mg Documented By: [facility] Discharge Plan Visit Data Chief Complaint: Illness Stated Complaint: LES ED Provider: Niko Miller Discharge Problem: Anxiety Patient Disposition: Admitted As Inpatient Condition: Fair Discharge Instructions Interventions: ED Discharge Assessment Last Done: 12/19/21 16:59
[2021-12-19] MEDS ORDERED: SODIUM CHLORIDE 0.9% 1000ML 1,000 ML IV SCH (13:30)
[2021-12-19 13:55] LABS: Basophils # (auto) 0.03 K/uL (0-0.2); Basophils % (auto) 0.3 %; Eosinophils # (auto) 0.03 K/uL (0-0.50); Eosinophils % (auto) 0.3 %; Hematocrit (blood only) 40.3 % (34.1-44.9); Hemoglobin 13.1 g/dl (12.0-16.0); Immature Granulocytes # (auto) 0.03 K/uL (0.00-0.02); Immature Granulocytes % (auto) 0.3 %; Lymphocytes # (auto) 1.72 K/uL (1.2-3.4); Lymphocytes % (auto) 17.7 %; Mean Corpuscular Hemoglobin 27.4 pg (25.0-34.0); Mean Corpuscular Hgb Conc 32.5 g/dL (32.0-36.0); Mean Corpuscular Volume 84.3 fL (80.0-100.0); Mean Platelet Volume 10.2 fL (9.4-12.3); Monocytes # (auto) 0.48 K/uL (0.24-0.82); Monocytes % (auto) 4.9 %; Neutrophils # (auto) 7.45 K/uL (1.4-6.5); Neutrophils % (auto) 76.5 %; Platelet Count 328 K/uL (130-400); RDW Coefficient of Variation 13.8 % (11.5-14.5); RDW Standard Deviation 42.7 fL (36.4-46.3); Red Blood Count 4.78 M/uL (3.93-5.22); White Blood Count 9.74 K/ul (4.8-10.8)
[2021-12-19 14:26] LABS: Acetaminophen < 3 ug/ml (10-30); Albumin Globulin Ratio 1.1 (0.9-2); Albumin Level 4.1 gm/dl (3.4-5.0); BUN Creatinine Ratio 11.6 (10-20); Bilirubin,Total 0.6 mg/dl (0.2-1.0); Calcium 9.4 mg/dl (8.5-10.1); Creatinine Clr Calc Pharmacy 132.6 ml/min; Est GFR (African American) 101.4 ml/min; Est GFR (Non-African American) 87.5 ml/min; Globulin 3.8 gm/dl (2.5-4.0); Potassium 4.2 mmol/L (3.5-5.1); Salicylate < 3.0 mg/dl (3.0-30); Total Protein 7.9 gm/dl (6.0-8.3)
[2021-12-19 14:31] LABS: Thyroid Stimulating Hormone 12.9 uIu/ml (0.300-4.500)
[2021-12-19 15:05] LABS: Pregnancy Test, Serum Negative (Negative)
[2021-12-19 15:07] LABS: T4 Free Thyroxine 0.71 ng/dl (0.61-1.60)
[2021-12-19 15:10] LABS: Appearance Urine Clear (Clear); Bacteria Urine Automated Negative (Negative); Bilirubin Urine Negative (Negative); Blood Urine Negative (Negative); Color Urine Yellow; Epithelial Cell Urine Auto >30 /lpf (0-5); Glucose Urine UA Negative (Negative); Ketones Urine Negative (Negative); Leukocyte Esterase Urine 1+ (Negative); Nitrite Urine Negative (Negative); Protein Urine Negative (Negative); RBC Urine Automated 0-4 /hpf (0-4); Urobilinogen Urine Negative (Negative)
[2021-12-19 15:30] LABS: Amphetamines+Metham, Urine Neg (Neg); Barbiturates, Urine Neg (Neg); Benzodiazepine, Urine Neg (Neg); Cocaine, Urine Neg (Neg); MDMA (Ecstacy), Urine Neg (Neg); Methadone, Urine Neg (Neg); Opiate, Urine Neg (Neg); Phencyclidine, Urine Neg (Neg)
[2021-12-19] MEDS ORDERED: ACETAMINOPHEN 325 MG TAB PO PRN (16:41)
[2021-12-19] MEDS ORDERED: BISMUTH SUBSALICYLATE LIQD 236 ML PO PRN (16:41)
[2021-12-19] MEDS ORDERED: hydrOXYzine HCl 25 MG TAB PO PRN ×2 (16:41)
[2021-12-19] MEDS ORDERED: MAGNESIUM HYDROXIDE SUSP 30 ML UDC PO PRN (16:41)
[2021-12-19] MEDS ORDERED: ALUMINUM/MAGNESIUM SUSP 30 ML UDC PO PRN (16:41)
[2021-12-19] MEDS ORDERED: SODIUM CHLORIDE 0.65% NA SOLN 45 ML (OCEAN) PRN (16:41)
[2021-12-19] MEDS: oxyCODONE HCL IR 5 MG TAB (IMMEDIATE RELEASE) PO PRN ×2 (18:00→23:30)
[2021-12-20] MEDS: LEVOTHYROXINE SODIUM 125 MCG TABLET PO SCH (08:33)
[2021-12-20] MEDS ORDERED: CITALOPRAM 20 MG TAB PO SCH (09:00)
[2021-12-20] MEDS: oxyCODONE HCL IR 5 MG TAB (IMMEDIATE RELEASE) PO PRN ×2 (09:05→17:13)
[2021-12-20] MEDS: CITALOPRAM 20 MG TAB PO SCH ×2 (11:47→21:14)
[2021-12-20] MEDS: ONDANSETRON 4 MG OD TAB PO PRN (13:53)
--- NOTE | 2021-12-20 14:58 | History & Physical ---
Date of Service December 20, 2021 Impression / Recommendations Impression 36 yo female with chronic pancreatitis/abdominal pain that requires regular opiod use, presented to ED multiple times over past 2 days with pain, anxiety, ultimately akathisia then worsening of anxiety to include panic and passive wish. She denies SI at this time but is unable to function well at home and needs to resume her Celexa. (1) Major depression: (2) Generalized anxiety disorder: (3) Pancreatitis, chronic: Pancreatitis type: unspecified pancreatitis type Qualified Code(s): K86.1 - Other chronic pancreatitis Plan The patient was admitted to the [facility] ([facility] mental health unit) on q15 min checks (behavioral with suicide precautions) for safety. The patient will participate in group, recreational, and milieu therapies and will be offered additional individual and family sessions as clinically appropriate. Risks/benefits/alternatives reviewed re: antidepressants for the treatment of depression and/or anxiety. The patient agreed to a trial of split dosing of Celexa then titration likely. Patient prefers over a trial of Lexapro given anxiety re: meds and GI issues. Monitor pancreatitis. TSH elevation likely due to some med non compliance/stress. will need PCP f/u. Inventory Assets Strengths: , loves children Needs: resume therapy, improve compliance with medication. 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 Chief Complaint "I kept coming back to the ER because I just couldn't calm down, I've never been like that before." History of Present Illness The patient deals with chronic pain (reports regular use of pain med) and recurrent N/V. She states this makes it difficult to stay on her Celexa consistently and in fact had missed past 4 days. She was treated with IV droperidol in the ED when her typical Zofran didn't work and had to return for management of akathisia. She feels that when those medications wore off her anxiety was even worse which impacts her pain (and vice versa). She's been lying around more at home and felt depressed as difficult to go about her day and caring for her young daughters 10 and 12. Of interest, her panic attacks and recurrent pain started in 2008 while she was which was also when her mother . Her appetite has been poor and she's been unmotivated to bharathi wer for up to a week at a time. She denies agoraphobia per se but is hesitant to leave the house as she worries about managing diarrhea or emesis. She feels she was an anxious teen but didn't get treatment until about 10 years ago. She found therapy helpful but "you know, I thought I was better and stopped." She denies that she was actively having thoughts to harm herself but does feel she can't go on like this at times. Past Psychiatric History Previous Psych History: Terrance Current Psychiatric Diagnosis: Unspecified Depressive Disorder Outpatient Services: none currently Previous Psych Admissions: none Do You Have Access To A Gun?: No History of Previous Suicide Attempt: No Past Medication Trials: Prozac (up to 60 mg), Celexa (never higher than 20 mg) Allergies Allergy/AdvReac Type Severity Reaction Status Date / Time adhesive Allergy Intermediate Rash-PATCH Verified 12/03/20 06:00 FROM FENTANYL ropinirole AdvReac Anxiety Verified 12/18/21 12:20 Home Medications Medication Instructions Recorded Confirmed Type oxycodone 5 mg tablet 5 mg PO Q6H PRN Pain 05/23/18 12/19/21 History ondansetron 4 mg disintegrating 4 mg PO Q4H PRN Nausea 12/31/18 12/19/21 History tablet acetaminophen 500 mg capsule 1,000 mg PO Q6H PRN Pain 11/26/20 12/19/21 History citalopram 20 mg tablet 20 mg PO QAM 12/19/21 12/19/21 History levothyroxine 125 mcg tablet 125 mcg PO DAILY 12/19/21 12/19/21 History Family History Family History of: Depression and Anxiety Alcohol History Hx of Alcohol Use Over the Past 12 Months: No AUDIT Total Score: 0 Smoking Use Have You Smoked or Used Tobacco Products in the Last 30 Days: No Smoking Status: Never smoker Substance History Hx of Prescription Med Misuse Over the Past 12 Months: No Hx of Over the Counter Med Misuse Over the Past 12 Months: No Hx of Inhalent Misuse Over the Past 12 Months: No Hx of Organic Substance Use Over the Past 12 Months: No Hx of Illegal Substances/Street Drug Use Over Past 12 Months: No Problems as a Result of Past Substance Use: None Identified Personal History Living Arrangements: Home Highest Grade Completed: High School Graduate Employment Status: Other (homemaker) Marital Status: Beliefs That Will Affect Care: None Current Legal Problems: No Hx Traumatic Life Events: Yes Patient History Medical History Anxiety Depression GERD (gastroesophageal reflux disease) Hypothyroid Morbid obesity with BMI of 50.0-59.9, adult Ovarian cyst Pancreatic stent migration Pancreatitis, chronic F/U DR TINO HATHAWAY WOHANNAH SOB (shortness of breath) on exertion OUT OF SHAPE Urinary tract infection Surgical History Encounter for pancreatic duct stent exchange NOW REMOVED H/O esophagogastroduodenoscopy History of bilateral tubal ligation History of cholecystectomy History of colonoscopy Family History Aunt Family history of diabetes mellitus Grandmother (Maternal) Family history of diabetes mellitus Other No pertinent family history Social History Smoking Status: Never smoker Second Hand Exposure: Yes (FATHER SMOKED); Hx Alcohol Use: No Hx Substance Use: No Preferred Language: Sami Communication Ability: Effective Technician Chemical Cleaning Required: No Beliefs That Will Affect Care: None Current Living Situation: Spouse current occupation: HOMEMAKER Feels Safe at Home: Yes Assistive Devices: Glasses Review of Systems Review of Systems: All systems reviewed & are unremarkable except as noted in HPI & below Physical Exam Psychiatric: Orientation: alert and oriented x 3 Apperance: appropriately dressed and appropriately groomed Eye Contact: good eye contact Motor Behavior: no abnormal motor movements Speech: normal rate/rhythm/volume of speech Affect: + depressed affect Mood: + depressed mood Thought Process: goal directed thought process Thought Content: reality based without delusions Suicidal Thoughts: denies suicidal thoughts Homicidal Thoughts: denies homicidal thoughts Hallucinations: no auditory hallucinations and no visual hallucinations Cognition: attention grossly intact and language grossly intact Estimated Intelligence: consistent with education level Insight: + limited insight Judgement: + limited judgement Vital Signs (Past 24 Hours): Last Vital Signs Temp 36.9 C 12/20/21 06:53 Pulse 79 12/20/21 06:53 Resp 16 12/20/21 06:53 BP 103/72 12/20/21 06:53 Pulse Ox 99 12/19/21 17:38 O2 Del Method 12/19/21 17:38 Exam Statement: A physical exam was performed in the ED by Dr. Miller for the purposes of medical clearance. I accept that physical as correct and adequate for the purposes of the inpatient physical exam. Results & Data ([facility]) Laboratory Results Laboratory Results - last 24 hr 12/19/21 12/19/21 12/19/21 13:40 13:40 14:50 Free T4 0.71 Free T3 HCG, Qual Negative Urine Color Yellow Urine Appearance Clear Urine pH 6.0 Ur Specific [place] 1.010 Urine Protein Negative Urine Glucose (UA) Negative Urine Ketones Negative Urine Blood Negative Urine Nitrite Negative Urine Bilirubin Negative Urine Urobilinogen Negative Ur Leukocyte Esterase 1+ H Urine WBC (Auto) 1-5 Urine RBC (Auto) 0-4 U Hyaline Cast (Auto) 1-5 U Epithel Cells (Auto) >30 H Urine Bacteria (Auto) Negative Urine Opiates Screen Ur Methadone, Qual Urine Barbiturates Ur Phencyclidine (PCP) U Amphetamin/Meth Scrn MDMA (Ecstasy) Screen U Benzodiazepines Scrn Ur Cocaine Metabolite U Marijuana (THC) Screen 12/19/21 12/20/21 12/20/21 14:50 07:53 07:53 Free T4 0.66 Free T3 3.27 HCG, Qual Urine Color Urine Appearance Urine pH Ur Specific [place] Urine Protein Urine Glucose (UA) Urine Ketones Urine Blood Urine Nitrite Urine Bilirubin Urine Urobilinogen Ur Leukocyte Esterase Urine WBC (Auto) Urine RBC (Auto) U Hyaline Cast (Auto) U Epithel Cells (Auto) Urine Bacteria (Auto) Urine Opiates Screen Neg Ur Methadone, Qual Neg Urine Barbiturates Neg Ur Phencyclidine (PCP) Neg U Amphetamin/Meth Scrn Neg MDMA (Ecstasy) Screen Neg U Benzodiazepines Scrn Neg Ur Cocaine Metabolite Neg U Marijuana (THC) Screen Neg Current Inpatient Medications Current Inpatient Medications: Current Inpatient Medications Acetaminophen (Acetaminophen 325 Mg Tab) 650 mg PO Q4H PRN PRN Reason: Headache or Minor Fever Stop: 01/18/22 16:40 Al Hydrox/Mg Hydrox/Simethicone (Aluminum/Magnesium Susp 30 Ml Udc) 30 ml PO Q4H PRN PRN Reason: GI Upset Stop: 01/18/22 16:40 Bismuth Subsalicylate (Bismuth Subsalicylate Liqd 236 Ml) 15 ml PO PRN PRN PRN Reason: Loose Stool Stop: 01/18/22 16:40 Citalopram Hydrobromide (Citalopram 20 Mg Tab) 10 mg PO BID@1100,2100 BRIANNA Stop: 01/19/22 20:59 Last Admin: 12/20/21 11:47 Dose: 10 mg Hydroxyzine HCl (Hydroxyzine Hcl 25 Mg Tab) 50 mg PO HSZ PRN PRN Reason: Insomnia Stop: 01/18/22 16:40 Hydroxyzine HCl (Hydroxyzine Hcl 25 Mg Tab) 25 mg PO Q4H PRN PRN Reason: Anxiety Stop: 01/18/22 16:40 Last Admin: 12/20/21 13:26 Dose: 25 mg Levothyroxine Sodium (Levothyroxine Sodium 125 Mcg Tablet) 125 mcg PO DAILYBB BRIANNA Stop: 01/19/22 08:14 Last Admin: 12/20/21 08:33 Dose: 125 mcg Magnesium Hydroxide (Magnesium Hydroxide Susp 30 Ml Udc) 30 ml PO DAILY PRN PRN Reason: Constipation Stop: 01/18/22 16:40 Ondansetron HCl (Ondansetron 4 Mg Od Tab) 4 mg PO Q4H PRN PRN Reason: Nausea And Vomiting Stop: 01/19/22 13:27 Last Admin: 12/20/21 13:53 Dose: 4 mg Oxycodone HCl (Oxycodone Hcl Ir 5 Mg Tab (Immediate Release)) 5 mg PO Q6 PRN PRN Reason: Pain Stop: 01/02/22 17:24 Last Admin: 12/20/21 09:05 Dose: 5 mg Sodium Chloride (Sodium Chloride 0.65% Na Soln 45 Ml ([place])) 1 - 2 sprays NA PRN PRN PRN Reason: Nasal Dryness/Congestion Stop: 01/18/22 16:40
[2021-12-21] MEDS: LEVOTHYROXINE SODIUM 125 MCG TABLET PO SCH (07:35)
[2021-12-21] MEDS: oxyCODONE HCL IR 5 MG TAB (IMMEDIATE RELEASE) PO PRN ×2 (08:14→17:16)
[2021-12-21] MEDS: CITALOPRAM 20 MG TAB PO SCH ×2 (11:33→21:32)
--- NOTE | 2021-12-21 13:42 | Psychiatric Progress Note ---
Date of Service December 21, 2021 Impression / Recommendations Impression 36 yo female with chronic pancreatitis/abdominal pain that requires regular opiod use, presented to ED multiple times over past 2 days with pain, anxiety, ultimately akathisia then worsening of anxiety to include panic and passive wish. She denies SI at this time but is unable to function well at home and needs to resume her Celexa. 12/21/21: minimal change (1) Major depression: (2) Generalized anxiety disorder: (3) Pancreatitis, chronic: Plan 12/21/21: continue current medication and treatment plan. Understands goal would be to titrate Celexa by 5 mg every few days to 20 mg BID (or 10 and 30 mg if N remains worse in am). Will likely need to occur after discharge to allow for time/better tolerability. 12/20/21: The patient was admitted to the [facility] ([facility] mental health unit) on q15 min checks (behavioral with suicide precautions) for safety. The patient will participate in group, recreational, and milieu therapies and will be offered additional individual and family sessions as clinically appropriate. Risks/benefits/alternatives reviewed re: antidepressants for the treatment of depression and/or anxiety. The patient agreed to a trial of split dosing of Celexa then titration likely. Patient prefers over a trial of Lexapro given anxiety re: meds and GI issues. Monitor pancreatitis. TSH elevation likely due to some med non compliance/stress. will need PCP f/u. Inventory Assets Strengths: , loves children Needs: resume therapy, improve compliance with medication. 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 Chief Complaint "this is my life", referring to her chronic pain and N Review of Systems Sleep Information Total Hours of Sleep: 6 Meal Information Percent Meal Consumed - Breakfast: 50 Percent Meal Consumed - Lunch: 50 Percent Meal Consumed - Dinner: 10 Nutrition Comment: pt. has poor appetite r/t nausea Subjective Subjective Patient was seen & assessed and interval progress reviewed with treatment team. The patient reports typical N this am but was able to "keep down" Celexa. declines to see hospitalist as nothing "acute", has seen pain management in the past and "nothing to do as I have stents", didn't like the alternate pain medication they had for her. At home typically has to get up in middle of night to take pain medication. Sleeping fairly well here. [place] N yesterday after PO meds. Physical Exam Psychiatric Orientation: alert and oriented x 3 Apperance: appropriately dressed and appropriately groomed Eye Contact: good eye contact Motor Behavior: no abnormal motor movements Speech: normal rate/rhythm/volume of speech Affect: + depressed affect Mood: + depressed mood Thought Process: goal directed thought process Thought Content: reality based without delusions Suicidal Thoughts: denies suicidal thoughts Homicidal Thoughts: denies homicidal thoughts Hallucinations: no auditory hallucinations and no visual hallucinations Cognition: attention grossly intact and language grossly intact Estimated Intelligence: consistent with education level Insight: + limited insight Judgement: + limited judgement Vital Signs (Past 24 Hours) Last Vital Signs Temp 36.8 C 12/21/21 06:52 Pulse 102 H 12/21/21 06:53 Resp 16 12/20/21 06:53 BP 122/79 12/21/21 06:53 Pulse Ox 99 12/19/21 17:38 O2 Del Method 12/19/21 17:38 Results & Data ([facility]) Current Inpatient Medications Current Inpatient Medications: Current Inpatient Medications Acetaminophen (Acetaminophen 325 Mg Tab) 650 mg PO Q4H PRN PRN Reason: Headache or Minor Fever Stop: 01/18/22 16:40 Al Hydrox/Mg Hydrox/Simethicone (Aluminum/Magnesium Susp 30 Ml Udc) 30 ml PO Q4H PRN PRN Reason: GI Upset Stop: 01/18/22 16:40 Bismuth Subsalicylate (Bismuth Subsalicylate Liqd 236 Ml) 15 ml PO PRN PRN PRN Reason: Loose Stool Stop: 01/18/22 16:40 Citalopram Hydrobromide (Citalopram 20 Mg Tab) 10 mg PO BID@1100,2100 BRIANNA Stop: 01/19/22 20:59 Last Admin: 12/21/21 11:33 Dose: 10 mg Hydroxyzine HCl (Hydroxyzine Hcl 25 Mg Tab) 50 mg PO HSZ PRN PRN Reason: Insomnia Stop: 01/18/22 16:40 Hydroxyzine HCl (Hydroxyzine Hcl 25 Mg Tab) 25 mg PO Q4H PRN PRN Reason: Anxiety Stop: 01/18/22 16:40 Last Admin: 12/20/21 13:26 Dose: 25 mg Levothyroxine Sodium (Levothyroxine Sodium 125 Mcg Tablet) 125 mcg PO DAILYBB BRIANNA Stop: 01/19/22 08:14 Last Admin: 12/21/21 07:35 Dose: 125 mcg Magnesium Hydroxide (Magnesium Hydroxide Susp 30 Ml Udc) 30 ml PO DAILY PRN PRN Reason: Constipation Stop: 01/18/22 16:40 Ondansetron HCl (Ondansetron 4 Mg Od Tab) 4 mg PO Q4H PRN PRN Reason: Nausea And Vomiting Stop: 01/19/22 13:27 Last Admin: 12/20/21 13:53 Dose: 4 mg Oxycodone HCl (Oxycodone Hcl Ir 5 Mg Tab (Immediate Release)) 5 mg PO Q6 PRN PRN Reason: Pain Stop: 01/02/22 17:24 Last Admin: 12/21/21 08:14 Dose: 5 mg Sodium Chloride (Sodium Chloride 0.65% Na Soln 45 Ml ([place])) 1 - 2 sprays NA PRN PRN PRN Reason: Nasal Dryness/Congestion Stop: 01/18/22 16:40 Mental Health & Subst Abuse Tx Psychiatrist Name of Psychiatrist: Quintin Burns Psychiatrist's Date of Appointment with Psychiatrist: 01/11/22 Time of Appointment with Psychiatrist: 8:15 AM Psychiatric Appointment Comment: [address], [place] [address] Therapist Name of Therapist: Tawana Leos Therapist's Phone Number: [phone] Date of Therapist Appointment: 12/29/21 Time of Therapist Appointment: 2:30 PM Therapy Appointment Comment: [address] [facility], [address], [place] [address] Post Discharge Appointments Primary Care Physician Name Of Family Doctor: Dr. Wyatt Primary [facility] Date of Appointment with PCP: 01/03/22 Time of Appointment with PCP: Arrive by 12:05 PM Provider Appointment Comment: [address], [place] [address] (1) Pancreatitis, chronic Pancreatitis type: unspecified pancreatitis type Qualified Code(s): K86.1 - Other chronic pancreatitis
[2021-12-22] MEDS: oxyCODONE HCL IR 5 MG TAB (IMMEDIATE RELEASE) PO PRN ×2 (04:33→12:30)
--- NOTE | 2021-12-22 08:29 | Psychiatric Progress Note ---
Date of Service December 22, 2021 Impression / Recommendations Impression 36 yo female with chronic pancreatitis/abdominal pain that requires regular opiod use, presented to ED multiple times over past 2 days with pain, anxiety, ultimately akathisia then worsening of anxiety to include panic and passive wish. She denies SI at this time but is unable to function well at home and needs to resume her Celexa. 12/22/21: more anxious today (1) Major depression: (2) Generalized anxiety disorder: (3) Pancreatitis, chronic: Plan 12/22/21: increase Celexa to 10 mg am and 15 mg pm. family meeting with . 12/21/21: continue current medication and treatment plan. Understands goal would be to titrate Celexa by 5 mg every few days to 20 mg BID (or 10 and 30 mg if N remains worse in am). Will likely need to occur after discharge to allow for time/better tolerability. 12/20/21: The patient was admitted to the [facility] ([facility] mental health unit) on q15 min checks (behavioral with suicide precautions) for safety. The patient will participate in group, recreational, and milieu therapies and will be offered additional individual and family sessions as clinically appropriate. Risks/benefits/alternatives reviewed re: antidepressants for the treatment of depression and/or anxiety. The patient agreed to a trial of split dosing of Celexa then titration likely. Patient prefers over a trial of Lexapro given anxi ety re: meds and GI issues. Monitor pancreatitis. TSH elevation likely due to some med non compliance/stress. will need PCP f/u. Inventory Assets Strengths: , loves children Needs: resume therapy, improve compliance with medication. 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 Chief Complaint "just really off, more anxious today". Review of Systems Sleep Information Total Hours of Sleep: 3.75 Meal Information Percent Meal Consumed - Breakfast: 50 Percent Meal Consumed - Lunch: 50 Percent Meal Consumed - Dinner: 50 Nutrition Comment: pt. has poor appetite r/t nausea Subjective Subjective Patient was seen & assessed and interval progress reviewed with nursing and social work. was more anxious at bedtime as got a roommate, unclear if related to her fears about not having access to the bathroom. required her pain medication overnight then did oversleep. Physical Exam Psychiatric Orientation: alert and oriented x 3 Apperance: appropriately dressed and appropriately groomed Eye Contact: good eye contact Motor Behavior: no abnormal motor movements Speech: normal rate/rhythm/volume of speech Affect: + depressed affect and + anxious affect Mood: + depressed mood and + anxious mood Thought Process: goal directed thought process Thought Content: reality based without delusions Suicidal Thoughts: denies suicidal thoughts Homicidal Thoughts: denies homicidal thoughts Hallucinations: no auditory hallucinations and no visual hallucinations Cognition: attention grossly intact and language grossly intact Estimated Intelligence: consistent with education level Insight: + limited insight Judgement: + limited judgement Vital Signs (Past 24 Hours) Last Vital Signs Temp 37.6 C H 12/22/21 06:43 Pulse 91 H 12/22/21 06:44 Resp 16 12/22/21 06:43 BP 138/92 12/22/21 06:44 Pulse Ox 99 12/19/21 17:38 O2 Del Method 12/19/21 17:38 Results & Data ([facility]) Current Inpatient Medications Current Inpatient Medications: Current Inpatient Medications Acetaminophen (Acetaminophen 325 Mg Tab) 650 mg PO Q4H PRN PRN Reason: Headache or Minor Fever Stop: 01/18/22 16:40 Al Hydrox/Mg Hydrox/Simethicone (Aluminum/Magnesium Susp 30 Ml Udc) 30 ml PO Q4H PRN PRN Reason: GI Upset Stop: 01/18/22 16:40 Bismuth Subsalicylate (Bismuth Subsalicylate Liqd 236 Ml) 15 ml PO PRN PRN PRN Reason: Loose Stool Stop: 01/18/22 16:40 Citalopram Hydrobromide (Citalopram 20 Mg Tab) 10 mg PO BID@1100,2100 BRIANNA Stop: 01/19/22 20:59 Last Admin: 12/21/21 21:32 Dose: 10 mg Hydroxyzine HCl (Hydroxyzine Hcl 25 Mg Tab) 50 mg PO HSZ PRN PRN Reason: Insomnia Stop: 01/18/22 16:40 Hydroxyzine HCl (Hydroxyzine Hcl 25 Mg Tab) 25 mg PO Q4H PRN PRN Reason: Anxiety Stop: 01/18/22 16:40 Last Admin: 12/20/21 13:26 Dose: 25 mg Levothyroxine Sodium (Levothyroxine Sodium 125 Mcg Tablet) 125 mcg PO DAILYBB BRIANNA Stop: 01/19/22 08:14 Last Admin: 12/21/21 07:35 Dose: 125 mcg Magnesium Hydroxide (Magnesium Hydroxide Susp 30 Ml Udc) 30 ml PO DAILY PRN PRN Reason: Constipation Stop: 01/18/22 16:40 Ondansetron HCl (Ondansetron 4 Mg Od Tab) 4 mg PO Q4H PRN PRN Reason: Nausea And Vomiting Stop: 01/19/22 13:27 Last Admin: 12/20/21 13:53 Dose: 4 mg Oxycodone HCl (Oxycodone Hcl Ir 5 Mg Tab (Immediate Release)) 5 mg PO Q6 PRN PRN Reason: Pain Stop: 01/02/22 17:24 Last Admin: 12/22/21 04:33 Dose: 5 mg Sodium Chloride (Sodium Chloride 0.65% Na Soln 45 Ml ([place])) 1 - 2 sprays NA PRN PRN PRN Reason: Nasal Dryness/Congestion Stop: 01/18/22 16:40 Mental Health & Subst Abuse Tx Psychiatrist Name of Psychiatrist: Quintin Burns Psychiatrist's Date of Appointment with Psychiatrist: 01/11/22 Time of Appointment with Psychiatrist: 8:15 AM Psychiatric Appointment Comment: [address], [place] [address] Therapist Name of Therapist: Tawana Leos Therapist's Phone Number: [phone] Date of Therapist Appointment: 12/29/21 Time of Therapist Appointment: 2:30 PM Therapy Appointment Comment: [address] [facility], [address], [place] [address] Post Discharge Appointments Primary Care Physician Name Of Family Doctor: Dr. Wyatt Primary Care Date of Appointment with PCP: 01/03/22 Time of Appointment with PCP: Arrive by 12:05 PM Provider Appointment Comment: [address], [place] [address] (1) Pancreatitis, chronic Pancreatitis type: unspecified pancreatitis type Qualified Code(s): K86.1 - Other chronic pancreatitis
[2021-12-22] MEDS: LEVOTHYROXINE SODIUM 125 MCG TABLET PO SCH (08:42)
[2021-12-22] MEDS ORDERED: CITALOPRAM 20 MG TAB PO STA (10:19)
[2021-12-22] MEDS: CITALOPRAM 20 MG TAB PO SCH (10:41)
[2021-12-22] MEDS ORDERED: CITALOPRAM 20 MG TAB PO SCH (22:00)
[2021-12-23] MEDS: oxyCODONE HCL IR 5 MG TAB (IMMEDIATE RELEASE) PO PRN ×2 (02:17→09:09)
[2021-12-23] MEDS: LEVOTHYROXINE SODIUM 125 MCG TABLET PO SCH (07:41)
[2021-12-23] MEDS: ONDANSETRON 4 MG OD TAB PO PRN (09:30)
[2021-12-23] MEDS ORDERED: CITALOPRAM 20 MG TAB PO SCH (10:00)
--- NOTE | 2021-12-23 10:31 | Discharge Summary ---
Date of Service December 23, 2021 History of Present Illness The patient deals with chronic pain (reports regular use of pain med) and recurrent N/V. She states this makes it difficult to stay on her Celexa consistently and in fact had missed past 4 days. She was treated with IV droperidol in the ED when her typical Zofran didn't work and had to return for management of akathisia. She feels that when those medications wore off her anxiety was even worse which impacts her pain (and vice versa). She's been lying around more at home and felt depressed as difficult to go about her day and caring for her young daughters 10 and 12. Of interest, her panic attacks and recurrent pain started in 2008 while she was which was also when her mother . Her appetite has been poor and she's been unmotivated to shower for up to a week at a time. She denies agoraphobia per se but is hesitant to leave the house as she worries about managing diarrhea or emesis. She feels she was an anxious teen but didn't get treatment until about 10 years ago. She found therapy helpful but "you know, I thought I was better and stopped." She denies that she was actively having thoughts to harm herself but does feel she can't go on like this at times. Physical Exam Psychiatric See admission H&P and DOD assessment. Vital Signs (Past 24 Hours) Last Vital Signs Temp 36.8 C 12/23/21 06:47 Pulse 86 12/23/21 06:47 Resp 16 12/23/21 06:47 BP 126/87 12/23/21 06:47 Pulse Ox 99 12/19/21 17:38 O2 Del Method 12/19/21 17:38 Principal Diagnosis major depressive disorder Psychiatric Data See daily stay summary. In short, safety was maintained and the patient was cooperative with care. Medication changes included restart of Celexa with split dosing to improve tolerability given her pancreatitis and they tolerated this well. A family session was held with her and safety plan was completed prior to discharge. She was shy at first and clearly anxious with changes in routine but responded well to reassurance and group therapy. She has not slept as well past 2 nights due to a combination of pain (chronic) but also homesick for her children. Note: Celexa dosing was not initially covered by insurance given number of tabs so she will have to split 20 mg and 10 mg tabs so that gets appropriate dose. Day of Discharge Assessment Today the patient voices readiness for discharge. They note improvement in mood and deny thoughts to harm self or others. Thoughts remain organized and they are improved from admission. There is no evidence of psychosis. They agree to take mediations as prescribed and keep follow-up appointments. They are stable for discharge to outpatient level of care. Transition of Care Transition Of Care Record: was reviewed with the patient Advance Directives Advance Directives Information Provided: Yes Advance Directives: No Mental Health Advance Directive: No Advance Directives on File: No Living Will: No Power of Camera Storage Clerk: No Advance Directives Reason:: Declines as Mental Health Visit. Suicide Risk Level Suicide Risk Level Comments: Suicide risk at discharge is deemed low as the patient is no longer requiring 24-hr monitoring, has a safety plan, and is free of suicidal ideation at discharge. 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) Tobacco Cessation at Discharge Tobacco Cessation Medication Prescribed at Discharge: Not Applicable/Non-Smoker Total Time Total Time Spent: Greater Than 30 Minutes Total Time Includes: Examination of the patient, Discharge Planning and Medication Reconciliation Discharge Data Lab Results 12/19/21 12/19/21 12/19/21 13:40 13:40 13:40 WBC 9.74 RBC 4.78 Hgb 13.1 Hct 40.3 MCV 84.3 MCH 27.4 MCHC 32.5 RDW Std Deviation 42.7 RDW Coeff of Jose 13.8 Plt Count 328 MPV 10.2 Immature Gran % (Auto) 0.3 Neut % (Auto) 76.5 Lymph % (Auto) 17.7 [place] % (Auto) 4.9 Eos % (Auto) 0.3 Baso % (Auto) 0.3 Neut # (Auto) 7.45 H Lymph # (Auto) 1.72 [place] # (Auto) 0.48 Eos # (Auto) 0.03 Baso # (Auto) 0.03 Immature Gran # (Auto) 0.03 H Sodium 136 Potassium 4.2 Chloride 103 Carbon Dioxide 26 Anion Gap 7 BUN 10 Creatinine 0.86 Est Cr Clr Drug Dosing 132.6 Est GFR ( Amer) 101.4 Est GFR (Non-Af Amer) 87.5 BUN/Creatinine Ratio 11.6 Glucose 107 H Calcium 9.4 Total Bilirubin 0.6 AST 17 ALT 19 Alkaline Phosphatase 55 Total Protein 7.9 Albumin 4.1 Globulin 3.8 Albumin/Globulin Ratio 1.1 TSH 12.900 H Free T4 0.71 Free T3 HCG, Qual Urine Color Urine Appearance Urine pH Ur Specific [place] Urine Protein Urine Glucose (UA) Urine Ketones Urine Blood Urine Nitrite Urine Bilirubin Urine Urobilinogen Ur Leukocyte Esterase Urine WBC (Auto) Urine RBC (Auto) U Hyaline Cast (Auto) U Epithel Cells (Auto) Urine Bacteria (Auto) Salicylates Urine Opiates Screen Ur Methadone, Qual Acetaminophen Urine Barbiturates Ur Phencyclidine (PCP) U Amphetamin/Meth Scrn MDMA (Ecstasy) Screen U Benzodiazepines Scrn Ur Cocaine Metabolite U Marijuana (THC) Screen Ethyl Alcohol mg/dL SARS-CoV-2, RNA, NAAT 12/19/21 12/19/21 12/19/21 13:40 13:40 13:40 WBC RBC Hgb Hct MCV MCH MCHC RDW Std Deviation RDW Coeff of Jose Plt Count MPV Immature Gran % (Auto) Neut % (Auto) Lymph % (Auto) [place] % (Auto) Eos % (Auto) Baso % (Auto) Neut # (Auto) Lymph # (Auto) [place] # (Auto) Eos # (Auto) Baso # (Auto) Immature Gran # (Auto) Sodium Potassium Chloride Carbon Dioxide Anion Gap BUN Creatinine Est Cr Clr Drug Dosing Est GFR ( Amer) Est GFR (Non-Af Amer) BUN/Creatinine Ratio Glucose Calcium Total Bilirubin AST ALT Alkaline Phosphatase Total Protein Albumin Globulin Albumin/Globulin Ratio TSH Free T4 Free T3 HCG, Qual Negative Urine Color Urine Appearance Urine pH Ur Specific [place] Urine Protein Urine Glucose (UA) Urine Ketones Urine Blood Urine Nitrite Urine Bilirubin Urine Urobilinogen Ur Leukocyte Esterase Urine WBC (Auto) Urine RBC (Auto) U Hyaline Cast (Auto) U Epithel Cells (Auto) Urine Bacteria (Auto) Salicylates < 3.0 L Urine Opiates Screen Ur Methadone, Qual Acetaminophen < 3 L Urine Barbiturates Ur Phencyclidine (PCP) U Amphetamin/Meth Scrn MDMA (Ecstasy) Screen U Benzodiazepines Scrn Ur Cocaine Metabolite U Marijuana (THC) Screen Ethyl Alcohol mg/dL < 10.0 SARS-CoV-2, RNA, NAAT 12/19/21 12/19/21 12/19/21 13:40 14:50 14:50 WBC RBC Hgb Hct MCV MCH MCHC RDW Std Deviation RDW Coeff of Jose Plt Count MPV Immature Gran % (Auto) Neut % (Auto) Lymph % (Auto) [place] % (Auto) Eos % (Auto) Baso % (Auto) Neut # (Auto) Lymph # (Auto) [place] # (Auto) Eos # (Auto) Baso # (Auto) Immature Gran # (Auto) Sodium Potassium Chloride Carbon Dioxide Anion Gap BUN Creatinine Est Cr Clr Drug Dosing Est GFR ( Amer) Est GFR (Non-Af Amer) BUN/Creatinine Ratio Glucose Calcium Total Bilirubin AST ALT Alkaline Phosphatase Total Protein Albumin Globulin Albumin/Globulin Ratio TSH Free T4 Free T3 HCG, Qual Urine Color Yellow Urine Appearance Clear Urine pH 6.0 Ur Specific [place] 1.010 Urine Protein Negative Urine Glucose (UA) Negative Urine Ketones Negative Urine Blood Negative Urine Nitrite Negative Urine Bilirubin Negative Urine Urobilinogen Negative Ur Leukocyte Esterase 1+ H Urine WBC (Auto) 1-5 Urine RBC (Auto) 0-4 U Hyaline Cast (Auto) 1-5 U Epithel Cells (Auto) >30 H Urine Bacteria (Auto) Negative Salicylates Urine Opiates Screen Neg Ur Methadone, Qual Neg Acetaminophen Urine Barbiturates Neg Ur Phencyclidine (PCP) Neg U Amphetamin/Meth Scrn Neg MDMA (Ecstasy) Screen Neg U Benzodiazepines Scrn Neg Ur Cocaine Metabolite Neg U Marijuana (THC) Screen Neg Ethyl Alcohol mg/dL SARS-CoV-2, RNA, NAAT NEGATIVE 12/20/21 12/20/21 07:53 07:53 WBC RBC Hgb Hct MCV MCH MCHC RDW Std Deviation RDW Coeff of Jose Plt Count MPV Immature Gran % (Auto) Neut % (Auto) Lymph % (Auto) [place] % (Auto) Eos % (Auto) Baso % (Auto) Neut # (Auto) Lymph # (Auto) [place] # (Auto) Eos # (Auto) Baso # (Auto) Immature Gran # (Auto) Sodium Potassium Chloride Carbon Dioxide Anion Gap BUN Creatinine Est Cr Clr Drug Dosing Est GFR ( Amer) Est GFR (Non-Af Amer) BUN/Creatinine Ratio Glucose Calcium Total Bilirubin AST ALT Alkaline Phosphatase Total Protein Albumin Globulin Albumin/Globulin Ratio TSH Free T4 0.66 Free T3 3.27 HCG, Qual Urine Color Urine Appearance Urine pH Ur Specific [place] Urine Protein Urine Glucose (UA) Urine Ketones Urine Blood Urine Nitrite Urine Bilirubin Urine Urobilinogen Ur Leukocyte Esterase Urine WBC (Auto) Urine RBC (Auto) U Hyaline Cast (Auto) U Epithel Cells (Auto) Urine Bacteria (Auto) Salicylates Urine Opiates Screen Ur Methadone, Qual Acetaminophen Urine Barbiturates Ur Phencyclidine (PCP) U Amphetamin/Meth Scrn MDMA (Ecstasy) Screen U Benzodiazepines Scrn Ur Cocaine Metabolite U Marijuana (THC) Screen Ethyl Alcohol mg/dL SARS-CoV-2, RNA, NAAT Hospital Course (1) Major depression: (2) Generalized anxiety disorder: (3) Pancreatitis, chronic: Plan 12/22/21: increase Celexa to 10 mg am and 15 mg pm. family meeting with . 12/21/21: continue current medication and treatment plan. Understands goal would be to titrate Celexa by 5 mg every few days to 20 mg BID (or 10 and 30 mg if N remains worse in am). Will likely need to occur after discharge to allow for time/better tolerability. 12/20/21: [facility] on q15 min checks (behavioral with suicide precautions) for safety. The patient will participate in group, recreational, and milieu therapies and will be offered additional individual and family sessions as clinically appropriate. Risks/benefits/alternatives reviewed re: antidepressants for the treatment of depression and/or anxiety. The patient agreed to a trial of split dosing of Celexa then titration likely. Patient prefers over a trial of Lexapro given anxiety re: meds and GI issues. Monitor pancreatitis. TSH elevation likely due to some med non compliance/stress. will need PCP f/u. Mental Health & Subst Abuse Tx Psychiatrist Name of Psychiatrist: [facility] Date of Appointment with Psychiatrist: 01/11/22 Time of Appointment with Psychiatrist: 8:15 AM Psychiatric Appointment Comment: [address], [place] [address] Therapist Name of Therapist: Tawana Leos Therapist's Phone Number: [phone] Date of Therapist Appointment: 12/29/21 Time of Therapist Appointment: 2:30 PM Therapy Appointment Comment: [address], [address], [place] [address] Post Discharge Appointments Primary Care Physician Name Of Family Doctor: Dr. Wyatt [facility] Date of Appointment with PCP: 01/03/22 Time of Appointment with PCP: Arrive by 12:05 PM Provider Appointment Comment: [address], [place] [address] Smoking Cessation Counseling Tobacco Cessation Medication Prescribed at Discharge: Not Applicable/Non-Smoker Other #1: Name of Aftercare Appointment: [facility] Time of Aftercare Appointment: Visit the website below for support group schedule. Aftercare Appointment Comment: [email or web address] #2: Name of Aftercare Appointment: [facility] - Anxiety & Depression and Hospital Transition groups Phone Number of Aftercare Appointment: [phone] Time of Aftercare Appointment: Anxiety & Depression: from 4-5 PM Aftercare Appointment Comment: Virtual - complete paperwork/set up portal to schedule intake. Discharge Plan Discharge Items Patient Disposition: Home - Self-Care Reason For Visit: UNSPECIFIED DEPRESSIVE DISORDER Discharge Diagnosis: major depressive disorder Condition on Discharge: Fair Activity: Resume your previous activity Non-emergency contact: Primary Care Provider, Psychiatrist and Therapist Call non-emergency contact if: you have any medication questions and your symptoms worsen Follow-up/Referrals: Xander Wyatt MD [Primary Care Provider] - Diet: Low Fat Addtl Attending Provider Instructions: SPECIAL CARE INSTRUCTIONS: 1. Follow through with your scheduled aftercare appointments. If unable to keep an appointment, please call to reschedule. 2. Take your medication only as prescribed. Medication should not be changed or stopped without the approval of your doctor. In the event of worsening symptoms or concerns about side effects, contact your doctor immediately. 3. Utilize new healthy coping skills, anger management skills, and stress management skills learned during your hospitalization. Journal feelings and process them with a support person. Identify stressors or situations that may result in relapse, deterioration or inappropriate behaviors and develop a plan to deal with those issues. 4. If your coping skills are ineffective and you are in crisis, contact your outpatient providers for direction. If unable to reach your providers, please call the [facility] CRISIS LINE AT , go to the [facility] walk-in center at [address], [address], [place], or go to the closest Emergency Room. 5. Avoid alcohol and un-prescribed drugs. 6. You have been provided with the Mental Health Advance Directives Pamphlet for your review. 7. Your condition is stable for discharge to outpatient level of care, but recovery is an ongoing process. Ifthoughts to harm yourself or others return, follow the safety plan developed during your stay. Planning for a safe return home includes securing weapons. Our treatment team recommends weaponsbe removed from the home until your outpatient provider reassesses your progress. In rare cases where the items themselvescannot be removed, guns and ammunitionshould be secured separatelyand keys stored by a reliable personoutside of the home. If you were admitted on an involuntary commitment, the police or other legal authorities may be involved in this process. AFTERCARE APPOINTMENTS: * Please call your insurance company prior to your scheduled appointment to co nfirm your aftercare providers are covered. Take your insurance information to your appointments. WHO TO CALL AND WHEN: Medical Emergencies: For questions or emergencies related to your hospital stay, please contact the Inpatient Behavioral Health Unit at [phone]. A tankerman is on-call 27/11 for the Behavioral Health Unit for emergencies At any time you feel your situation is an emergency, you may also call 911 immediately. Pending Studies at Discharge: No Stand-Alone Forms: [facility], Sm[facility] Cessation Medications and DC Order Prescriptions: New citalopram 10 mg tablet 10 mg PO DAILY@1000 Qty: 75 0RF Rx Instructions: and 1.5 tab po q pm (patient has pancreatic insufficiency and needs split dosing) hydroxyzine HCl 25 mg Tablet 25 mg PO Q4H PRN (Reason: anxiety) Qty: 30 0RF Rx Instructions: aware of QTc with Celexa, low dose Continued oxycodone 5 mg tablet 5 mg PO Q6H PRN (Reason: Pain) ondansetron 4 mg tablet,disintegrating 4 mg PO Q4H PRN (Reason: Nausea) Rx Instructions: PLACE ONE TABLET ON TABLET AND ALLOW TO DISSOLVE acetaminophen 500 mg Capsule 1,000 mg PO Q6H PRN (Reason: Pain) levothyroxine 125 mcg tablet 125 mcg PO DAILY Discontinued citalopram 20 mg tablet 20 mg PO QAM Discharge Orders: Discharge Order (Routine); Ordered 12/23/21 Ordered By: Araceli Clements Admission Data Admit Date/Time: 12/19/21 16:41 Attending Provider: Araceli Clements Admit Provider: Araceli Clements Primary Care Provider: Xander Wyatt Other Interventions: Discharge Summary Assessment (RN) Last Done: 12/23/21 10:50 PSY Interdisciplinary Discharge Planning Last Done: 12/23/21 10:56 Coding Level of Care Code 56113 D/C day mgmt > 30 min Diagnoses Major depression F32.9 Generalized anxiety disorder F41.1 Pancreatitis, chronic K86.1 Pancreatitis type: unspecified pancreatitis type
[2021-12-23] MEDS ORDERED: DESTROY THIS MEDICATION ONE (10:58)
== END 2021-12-23 12:38 | disposition home or self-care (01) | DRG 881 ==
LOC: ED 12:57 → 3S 16:41